=== PATIENT | female | born 1990 | race Two or more races ===

== ENCOUNTER 2021-11-18 10:43 | Outpatient (REF) | payer SELFPAY ==
[2021-11-18 14:13] LABS: Binax Internal Control QC Valid; Binax Lot number: 9864; Binax Now Covid-19 Ag Negative (Negative)
== END 2021-11-18 10:44 | disposition home or self-care (01) ==
LOC: HO.LAB 10:43
PROVIDERS: Visit Provider Internal Medicine
DX: Z20.822 Contact with and (suspected) exposure to COVID-19 (principal)
CPT/HCPCS: 36415; C9803

== ENCOUNTER 2021-11-29 13:54 | Inpatient (IN) | payer MEDICAID, SELFPAY ==
--- NOTE | ~2021-11-29 | US_ITS ---
EXAMINATION: US ABDOMEN LIMITED CLINICAL INFORMATION: Elevated liver function tests. COMPARISON: None TECHNIQUE: Real-time imaging of the right upper quadrant abdominal viscera. FINDINGS: PANCREAS: Visualized portion of the head and body of the pancreas are unremarkable, remainder of the pancreas is obscured from visualization by overlying bowel gas. LIVER: The liver is normal in size. The liver contour is normal. Parenchymal echogenicity is normal. A 0.9 x 0.7 x 1.1 cm hyperechoic avascular lesion is noted in the liver adjacent to the gallbladder, which statistically represents a hemangioma. There is no intrahepatic biliary duct dilatation seen. GALLBLADDER: Normal. The gallbladder is physiologically distended without evidence of stones, sludge, polyps, wall thickening or pericholecystic fluid. COMMON BILE DUCT: Normal in caliber measuring 0.4 cm in diameter. RIGHT KIDNEY: Normal. No hydronephrosis. No renal calculi or focal parenchymal lesions. The kidney measures 10.6 cm in maximum dimension. FREE FLUID: Trace fluid is noted in the Morison's pouch. US/US abdomen limited IMPRESSION: 1. No sonographic evidence of hepatic steatosis. No biliary ductal dilatation. 2. Incomplete evaluation of the pancreas. 3. No evidence of cholelithiasis or acute cholecystitis. 4. A 1.1 cm hyperechoic lesion noted adjacent to the gallbladder in the right hepatic lobe. Statistically, the lesion represents a hemangioma. If clinically deemed necessary, correlation with dynamic liver MRI would be helpful for further evaluation. 5. Trace free fluid in the Morison's pouch. This is a nonspecific finding.
--- NOTE | ~2021-11-29 | US_ITS ---
EXAMINATION: US appendix CLINICAL INFORMATION: Reason for Exam RLQ pain COMPARISON: None. TECHNIQUE: Dynamic, real-time grayscale and color Doppler sonographic evaluation of the right lower quadrant was performed FINDINGS: A hollow viscus is shown on the images submitted for review, however it has a appearance of small bowel, undulating in contour. For this degree of dilatation, a pathologic appendix would be expected to show a smooth contour, and more rigid appearance. No inflammatory changes. US/US appendix IMPRESSION: Appendix not definitively identified therefore appendicitis is not excluded.
--- NOTE | ~2021-11-29 | US_ITS ---
EXAMINATION: US PELVIS CLINICAL INFORMATION: Right lower quadrant pain. Last menstrual period 10/29/2021 COMPARISON: None TECHNIQUE: Ultrasound of the pelvis is performed using both transabdominal and transvaginal transducers along with Doppler. Transvaginal imaging is performed due to inadequate visualization transabdominally. FINDINGS: Possible intrauterine gestational sac is identified with mean sac diameter of 2.5 mm which would correspond to a gestational age of 4 weeks, 5 days. No pole or yolk sac is identified. Ovaries are normal in size and appearance measuring 4.0 x 2.7 x 2.2 cm on the right and 2.2 x 1.7 x 1.8 cm and the left. There is a 1.8 cm corpus luteum within the right ovary. Small free fluid within the cul-de-sac. US/US pelvic and transvaginal IMPRESSION: * Possible intrauterine gestational sac with size corresponding to gestational age of 4 weeks, 5 days. Neither a pole nor yolk sac would necessarily be expected to be seen in this early in . * Normal ovaries.
[2021-11-29 14:12] VITALS: BP 110/72; PULSE 122; RESP 18; TEMP 36.8; O2SAT 100; BMI 19.6
[2021-11-29] MEDS: Ondansetron ODT 4 MG TAB.RAPDIS TRANSLINGU (14:21)
[2021-11-29 14:25] LABS: MANUAL DIFF FLAG NO
[2021-11-29 14:26] LABS: Basophils Percent Auto 0.2 % (0-2); Hematocrit 38.7 % (37.0-47.0); Hemoglobin 12.7 g/dl (12.0-16.0); Imm Gran Abs Auto 0.05 X10*3/uL (0.00-0.03); Imm Gran Pct Auto 0.4 % (0.0-0.4); Lymphocytes Absolute Auto 0.4 X10*3/uL (1.2-4.9); Lymphocytes Percent Auto 2.8 % (20-40); Mean Corpuscular HGB Conc 32.8 g/dl (31.0-35.0); Mean Corpuscular Hemoglobin 27.4 pg (27.0-33.0); Mean Corpuscular Volume 83.6 fL (80.0-98.0); Mean Platelet Volume 10.8 fL (9.4-12.3); Monocytes Absolute Auto 1.1 X10*3/uL (0.1-1.2); Monocytes Percent Auto 9.1 % (2-11); Neutrophils Absolute Auto 10.8 x10*3/uL (2.0-8.3); Neutrophils Percent Auto 87.5 % (45-73); Platelet Count 168 X10*3/uL (160-400); Red Blood Count 4.63 X10*6/uL (4.20-5.50); Red Cell Distribution Width 12.9 % (11.0-16.0); White Blood Count 12.4 X10*3/uL (4.8-10.8)
[2021-11-29 14:59] LABS: Alanine Aminotransferase 302 U/L (0-31); Albumin Level 4.2 g/dL (3.5-5.0); Alkaline Phosphatase 83 U/L (39-117); Anion Gap 14 (12-20); Aspartate Amino Transferase 280 U/L (5-31); Bilirubin Total 1.5 mg/dL (0.0-1.0); Blood Urea Nitrogen 9 mg/dL (9-16); Calcium 9.1 mg/dL (8.4-10.2); Carbon Dioxide 22 mmol/L (22-29); Chloride 105 mmol/L (96-108); Creatinine Clr Calc Pharmacy 87.5; Estimated Glomerular Filt Rate > 60; Glucose Random 118 mg/dL (60-115); Potassium 3.8 mmol/L (3.3-5.1); Sodium 137 mmol/L (135-145); Total Protein 7.6 g/dL (6.5-8.0)
[2021-11-29 20:14] LABS: Bilirubin Direct 0.8 mg/dL (0.0-0.5); Lipase 14 U/L (8-78)
[2021-11-29 21:57] VITALS: BP 120/77; PULSE 145; RESP 18; TEMP 37.7; O2SAT 100
[2021-11-29] MEDS: 0.9 % Sodium Chloride 1,000 ML 999 ML IV ×2 (22:14→23:29)
--- NOTE | 2021-11-29 22:16 | PC.NURSE ---
iv inserted, lab drawn, ivf running per order, pt sinus tach on monitor with pvcs at times, vss, will continue to monitor
--- NOTE | 2021-11-29 22:42 | ED.ABDPAIN ---
HPI - Abdominal Pain General Chief Complaint: Abdominal Pain Stated Complaint: lower r side pain vomiting Time Seen by Provider: 11/29/21 22:04 Source: patient Limitations: language barrier (Hospital conference services director used) History of Present Illness HPI narrative: This is a 31-year-old female who complains of abdominal pain with associated pain in her right lower back that began yesterday. Patient yesterday noted a urine seemed more concentrated and again noted that today. The patient has had nausea and vomiting earlier today. She had a little bit of diarrhea. She denies any dysuria per se. She denies any vaginal discharge or new sexual partners. She states she could be as she is not using protection, her last menstrual period was last month. She does have a history of Caesarean section, denies other surgery. Pain is worse with walking and movement, is worse in her right lower abdomen. Related Data Allergies Allergy/AdvReac Type Severity Reaction Status Date / Time No Known Allergies Allergy Verified 11/29/21 14:11 Review of Systems Review of Systems Yes all other systems are reviewed and are negative Constitutional: Reports as per HPI and Reports fever(s) Eyes: Reports as per HPI and Reports no additional eye complaints Reports system reviewed and no additional complaints, except as documented, Reports as per HPI, Denies nasal congestion, Denies nasal discharge and Denies sore throat Cardiovascular: Reports as per HPI, Denies chest pain and Denies dyspnea Respiratory: Reports as per HPI, Denies cough and Denies dyspnea Gastrointestinal: Reports as per HPI, Reports abdominal pain, Denies diarrhea, Reports nausea and Reports vomiting Genitourinary: Reports as per HPI, Denies hematuria and Reports dysuria Musculoskeletal: Reports no additional musculoskeletal complaints, Reports back pain and Denies numbness Skin/Breast: Reports as per HPI and Denies rash Reports as per HPI, Denies focal weakness, Denies numbness and Denies Sensory deficit (Neuro) Psychiatric: Reports no additional psychiatric complaints and Reports as per HPI Endocrine: Reports no additional endocrine complaints and Reports as per HPI Hematologic/Lymphatic: Reports no additional hematologic/lymphatic complaints, Reports as per HPI and Reports other (No peripheral edema) Physical Exam Vital Signs: Vital Signs: Last Vital Signs Temp 99.8 F 11/30/21 01:56 Pulse 123 H 11/30/21 01:56 Resp 18 11/30/21 01:56 BP 107/71 11/30/21 01:56 Pulse Ox 100 11/30/21 01:56 BMI result Body Mass Index 19.6 Const: General: cooperative, no acute distress and alert Orientation/consciousness: patient oriented x3 HENMT: Head: Yes normal to inspection Eyes: General: appearance normal, both eyes and all related structures Eyelids: Yes eyelids normal Conjunctivae: conjunctivae normal Pupils: Equal, round and reactive pupils present Neck: Neck: Yes normal visual inspection and Yes supple Chest: Chest palpation & inspection: normal inspection of the chest Resp: Effort & Inspection: normal respiratory effort Auscultation: clear to auscultation bilaterally Cardio: Rate: tachycardic Rhythm: regular rhythm Heart sounds: S1 normal heart sound present, S2 normal heart sound present, no gallops, no murmurs and no rubs GI: Palpation (GI): Soft to palpation, Tenderness to palpation present (GI) (Tender bilateral lower quadrants, right greater than left. Right CVAT) and Other GI palpation findings present (Non-distended) Auscultation: Hypoactive bowel sounds present Skin: General skin exam: no rashes or lesions noted Neuro: General: patient oriented x3, no focal motor deficits and CN's II-XI intact bilaterally Cranial nerves: Yes Equal, round and reactive pupils present Cognition (Neuro): normal cognition Motor exam (neuro): 5/5 motor strength present throughout Sensory Exam: No Sensory deficit (Neuro) Extrem: General: Yes normal to inspection and Yes no pedal edema Psych: Appearance: grossly normal Affect: normal affect MDM - Abdominal Pain MDM Narrative Medical decision making narrative: Patient with right flank pain, right CVA tenderness, some right lower quadrant pain and tenderness, was febrile and tachycardic to the 140s. Urinalysis showed evidence of UTI, overall picture consistent with pyelonephritis. Patient is with a beta hCG quant in the 300s, given this, ultrasound is being done to rule out ectopic and evaluate for appendicitis, though clinically I suspect pyelonephritis. Patient has received Zosyn IV as well as 2 L normal saline, Tylenol p.o.. Lactate was elevated 2.8. Findings consistent with sepsis. Patient is being signed out to Dr. Jewell at 02:15, ultrasound pending. Lab Data Result diagrams: 11/29/21 14:20 11/29/21 14:20 Labs: Lab Results 11/29/21 11/29/21 11/29/21 Range/Units 14:20 14:20 22:15 WBC 12.4 H (4.8-10.8) X10*3/uL RBC 4.63 (4.20-5.50) X10*6/uL Hgb 12.7 (12.0-16.0) g/dl Hct 38.7 (37.0-47.0) % MCV 83.6 (80.0-98.0) fL MCH 27.4 (27.0-33.0) pg MCHC 32.8 (31.0-35.0) g/dl RDW 12.9 (11.0-16.0) % Plt Count 168 (160-400) X10*3/uL MPV 10.8 (9.4-12.3) fL Immature Gran % (Auto) 0.4 (0.0-0.4) % Neut % (Auto) 87.5 H (45-73) % Lymph % (Auto) 2.8 L (20-40) % [place] % (Auto) 9.1 (2-11) % Eos % (Auto) 0.0 (0-4) % Baso % (Auto) 0.2 (0-2) % Lymph # (Auto) 0.4 L (1.2-4.9) X10*3/uL [place] # (Auto) 1.1 (0.1-1.2) X10*3/uL Eos # (Auto) 0.0 (0.0-0.4) X10*3/uL Baso # (Auto) 0.0 (0.0-0.2) X10*3/uL Abs Immat Gran (auto) 0.05 H (0.00-0.03) X10*3/uL Absolute Neuts (auto) 10.8 H (2.0-8.3) x10*3/uL Absolute Nucleated RBC 0.000 (0.0-0.012) X10*3/uL Nucleated RBC % (auto) 0.0 (0.0-0.2) /100WBC Sodium 137 (135-145) mmol/L Potassium 3.8 (3.3-5.1) mmol/L Chloride 105 (96-108) mmol/L Carbon Dioxide 22 (22-29) mmol/L Anion Gap 14 (12-20) BUN 9 (9-16) mg/dL Creatinine 0.70 (0.5-1.4) mg/dL Estim Creat Clear Calc 87.5 Estimated GFR > 60 Random Glucose 118 H (60-115) mg/dL Lactic Acid 2.8 H* (0.5-2.0) mmol/L Lactic Acid F/U @ 2Hr (0.5-2.0) mmol/L Calcium 9.1 (8.4-10.2) mg/dL Total Bilirubin 1.5 H (0.0-1.0) mg/dL Direct Bilirubin 0.8 H (0.0-0.5) mg/dL AST 280 H (5-31) U/L ALT 302 H (0-31) U/L Alkaline Phosphatase 83 (39-117) U/L Total Protein 7.6 (6.5-8.0) g/dL Albumin 4.2 (3.5-5.0) g/dL Lipase 14 (8-78) U/L Beta HCG, Quant mIU/mL Urine Color Urine Appearance Urine pH (5.0-8.0) Ur Specific [place] (1.005-1.025) Urine Protein (NEG-TRACE) MG/DL Urine Glucose (UA) (NEG) MG/DL Urine Ketones (NEG) MG/DL Urine Blood (NEG) Urine Nitrite (NEG) Ur Leukocyte Esterase (NEG) Urine RBC (0) /HPF Urine WBC (0-4) /HPF Ur Squamous Epith Cells /LPF Ur Renal Epithelial Cell /LPF Urine Bacteria /LPF Urine Mucus /LPF Urine Test (NEGATIVE) COVID-19 (FARRUKH) (Negative) COVID-19 Clin Com 11/29/21 11/29/21 11/29/21 Range/Units 22:20 23:20 23:20 WBC (4.8-10.8) X10*3/uL RBC (4.20-5.50) X10*6/uL Hgb (12.0-16.0) g/dl Hct (37.0-47.0) % MCV (80.0-98.0) fL MCH (27.0-33.0) pg MCHC (31.0-35.0) g/dl RDW (11.0-16.0) % Plt Count (160-400) X10*3/uL MPV (9.4-12.3) fL Immature Gran % (Auto) (0.0-0.4) % Neut % (Auto) (45-73) % Lymph % (Auto) (20-40) % [place] % (Auto) (2-11) % Eos % (Auto) (0-4) % Baso % (Auto) (0-2) % Lymph # (Auto) (1.2-4.9) X10*3/uL [place] # (Auto) (0.1-1.2) X10*3/uL Eos # (Auto) (0.0-0.4) X10*3/uL Baso # (Auto) (0.0-0.2) X10*3/uL Abs Immat Gran (auto) (0.00-0.03) X10*3/uL Absolute Neuts (auto) (2.0-8.3) x10*3/uL Absolute Nucleated RBC (0.0-0.012) X10*3/uL Nucleated RBC % (auto) (0.0-0.2) /100WBC Sodium (135-145) mmol/L Potassium (3.3-5.1) mmol/L Chloride (96-108) mmol/L Carbon Dioxide (22-29) mmol/L Anion Gap (12-20) BUN (9-16) mg/dL Creatinine (0.5-1.4) mg/dL Estim Creat Clear Calc Estimated GFR Random Glucose (60-115) mg/dL Lactic Acid (0.5-2.0) mmol/L Lactic Acid F/U @ 2Hr (0.5-2.0) mmol/L Calcium (8.4-10.2) mg/dL Total Bilirubin (0.0-1.0) mg/dL Direct Bilirubin (0.0-0.5) mg/dL AST (5-31) U/L ALT (0-31) U/L Alkaline Phosphatase (39-117) U/L Total Protein (6.5-8.0) g/dL Albumin (3.5-5.0) g/dL Lipase (8-78) U/L Beta HCG, Quant 308 mIU/mL Urine Color YELLOW Urine Appearance HAZY Urine pH 6.0 (5.0-8.0) Ur Specific [place] 1.025 (1.005-1.025) Urine Protein 1+ H (NEG-TRACE) MG/DL Urine Glucose (UA) NEG (NEG) MG/DL Urine Ketones 5 (NEG) MG/DL Urine Blood 3+ H (NEG) Urine Nitrite POS H (NEG) Ur Leukocyte Esterase 1+ H (NEG) Urine RBC 0-2 (0) /HPF Urine WBC 50-75 H (0-4) /HPF Ur Squamous Epith Cells 1+ /LPF Ur Renal Epithelial Cell TRACE /LPF Urine Bacteria 4+ /LPF Urine Mucus TRACE /LPF Urine Test (NEGATIVE) COVID-19 (FARRUKH) Negative (Negative) COVID-19 Clin Com See Note 11/29/21 11/30/21 Range/Units 23:25 01:38 WBC (4.8-10.8) X10*3/uL RBC (4.20-5.50) X10*6/uL Hgb (12.0-16.0) g/dl Hct (37.0-47.0) % MCV (80.0-98.0) fL MCH (27.0-33.0) pg MCHC (31.0-35.0) g/dl RDW (11.0-16.0) % Plt Count (160-400) X10*3/uL MPV (9.4-12.3) fL Immature Gran % (Auto) (0.0-0.4) % Neut % (Auto) (45-73) % Lymph % (Auto) (20-40) % [place] % (Auto) (2-11) % Eos % (Auto) (0-4) % Baso % (Auto) (0-2) % Lymph # (Auto) (1.2-4.9) X10*3/uL [place] # (Auto) (0.1-1.2) X10*3/uL Eos # (Auto) (0.0-0.4) X10*3/uL Baso # (Auto) (0.0-0.2) X10*3/uL Abs Immat Gran (auto) (0.00-0.03) X10*3/uL Absolute Neuts (auto) (2.0-8.3) x10*3/uL Absolute Nucleated RBC (0.0-0.012) X10*3/uL Nucleated RBC % (auto) (0.0-0.2) /100WBC Sodium (135-145) mmol/L Potassium (3.3-5.1) mmol/L Chloride (96-108) mmol/L Carbon Dioxide (22-29) mmol/L Anion Gap (12-20) BUN (9-16) mg/dL Creatinine (0.5-1.4) mg/dL Estim Creat Clear Calc Estimated GFR Random Glucose (60-115) mg/dL Lactic Acid (0.5-2.0) mmol/L Lactic Acid F/U @ 2Hr 1.5 (0.5-2.0) mmol/L Calcium (8.4-10.2) mg/dL Total Bilirubin (0.0-1.0) mg/dL Direct Bilirubin (0.0-0.5) mg/dL AST (5-31) U/L ALT (0-31) U/L Alkaline Phosphatase (39-117) U/L Total Protein (6.5-8.0) g/dL Albumin (3.5-5.0) g/dL Lipase (8-78) U/L Beta HCG, Quant mIU/mL Urine Color Urine Appearance Urine pH (5.0-8.0) Ur Specific [place] (1.005-1.025) Urine Protein (NEG-TRACE) MG/DL Urine Glucose (UA) (NEG) MG/DL Urine Ketones (NEG) MG/DL Urine Blood (NEG) Urine Nitrite (NEG) Ur Leukocyte Esterase (NEG) Urine RBC (0) /HPF Urine WBC (0-4) /HPF Ur Squamous Epith Cells /LPF Ur Renal Epithelial Cell /LPF Urine Bacteria /LPF Urine Mucus /LPF Urine Test POSITIVE H (NEGATIVE) COVID-19 (FARRUKH) (Negative) COVID-19 Clin Com Discharge Plan Discharge Clinical Impression: Pyelonephritis, First trimester [facility] Past Medical History Medical History (Updated 11/30/21 @ 02:18 by Chet Iverson MD) Asthma Surgical History (Updated 11/29/21 @ 14:14 by Meenu Siddiqi RN) H/O mitral valve replacement Social History Social History Advance Directives: No Advance Directives Information Provided: No Patient : No
[2021-11-29 22:45] LABS: COVID-19 Test Negative (Negative)
[2021-11-29 22:50] LABS: Lactic Acid 2.8 mmol/L (0.5-2.0)
[2021-11-29 23:23] VITALS: BP 111/75; PULSE 129; RESP 15; TEMP 38.4; O2SAT 100
[2021-11-29] MEDS: Acetaminophen 325 MG TABLET 650 MG PO (23:26)
[2021-11-29] MEDS: ondansetron HCL 4 MG/2 ML VIAL IVPUSH (23:27)
[2021-11-29] MEDS: HYDROmorphone HCl 1 MG/ML SYRINGE IVPUSH (23:29)
[2021-11-29] MEDS: Piperacillin Sodium/Tazobactam 3.375 GM in 0.9 % Sodium Chloride 50 ML IV (23:31)
[2021-11-29 23:39] LABS: Appearance Urine HAZY; Color Urine YELLOW; Glucose Urine UA NEG (NEG); Leukocyte Esterase Urine 1+ (NEG); Nitrite Urine POS (NEG); Specific Gravity - Urine 1.025 (1.005-1.025); UACC Culture Trigger YES; Urine Blood 3+ (NEG); Urine Ketones 5 MG/DL (NEG); Urine Protein 1+ MG/DL (NEG-TRACE)
[2021-11-29 23:42] LABS: UPreg QC Valid YES; Urine Pregnancy POSITIVE (NEGATIVE)
[2021-11-29 23:47] LABS: HCG Quantitative 308 mIU/mL
[2021-11-30] VITALS (7 sets, daily range): BP systolic 95–116; BP diastolic 51–83; PULSE 98–131; RESP 14–20; TEMP 37.1–37.8; O2SAT 97–100
[2021-11-30 00:06] LABS: Bacteria Urine 4+ /LPF; Mucus Urine TRACE /LPF; RBC Urine 0-2 /HPF (0); Renal Epithelial Cells Urine TRACE /LPF; Squamous Epithelial Cell Urine 1+ /LPF; WBC Urine 50-75 /HPF (0-4)
[2021-11-30 00:19] LABS: Reflex Lactate? Lactic Acid Added
[2021-11-30 01:55] LABS: ~Lactic Acid-LAB USE ONLY 1.5 mmol/L (0.5-2.0)
--- NOTE | 2021-11-30 02:49 | PC.NURSE ---
BEBETO KEBEDE IS AWARE OF PATIENT TEMP .
--- NOTE | 2021-11-30 10:18 | PHA.MEDREC ---
Pharmacy Consult ? Medication Reconciliation Pharmacy has completed the medication reconciliation.
[2021-11-30] MEDS: Morphine Sulfate 2 MG/ML CARTRIDGE IVPUSH (10:22)
[2021-11-30] MEDS: Acetaminophen 325 MG TABLET 650 MG PO ×2 (10:27→18:03)
--- NOTE | 2021-11-30 10:44 | PM.IMHP ---
History of Present Illness Date of Service: 11/30/21 Attending physician on admission: Dwain Long Chief Complaint: UTI /sepsis/pyelonephritis, elevated LFT, . 31-year-old female 2 para 0, history of preeclampsia during last , came to the hospital because of dysuria, foul-smelling urine and right side flank pain, also has nausea and vomiting. abdominal ultrasound was done she seems to be possible intrauterine -4 weeks 5 days possible duration.No pole or yolk sac is identified. Patient has white count of 12.4, initial fever of 101.2 overnight Lactic acidosis 2.8, also tachycardic patient also has elevated LFT. Denies any new complaint of chest pain or shortness of breath Or vaginal discharge Denies any cough Denies any weakness or numbness. Past medical history: Asthma,mitral valve dysfunction- she says she did not had any surgery on the Mitral valve but she follows up outpatient with Cardiology yearly for that. social history: Patient lives with partner, denies any alcohol use or recreational drug use or smoking personal history: She says she is sexually active with only 1 partner and the she denies any history of any STD. Review of Systems Review of Systems: as above. Yes all other systems are reviewed and are negative [facility] Medical History Asthma Pertinent family history: She denies any family history of asthma. Surgical History H/O mitral valve replacement Social History Smoked in Last 30 Days: No Use of substances other than those prescribed or required for medical reasons: No Advance Directives: No Advance Directives Information Provided: No Patient : No service: No Current occupational status: employed Meds Allergies Allergy/AdvReac Type Severity Reaction Status Date / Time No Known Allergies Allergy Verified 11/29/21 14:11 Active Medications: Current Medications Albuterol Sulfate (Albuterol Sulfate 90 Mcg 8 Gm Inhaler) 2 puff INHALE RQ6H PRN PRN Reason: sob Multivitamins/Vitamin C (Multivitamin Tablet) 1 tab PO DAILY [facility] Pharmacy Consult (Consult Rx Perform Med Rec) 1 each MISCELLANE ONCE PRN PRN Reason: Consult order Sodium Chloride (0.9 % Sodium Chloride Flush 3 Ml Syringe) 3 ml IVFLUSH QSHIFT HOLLY Home Medications Medication Instructions Recorded Confirmed Last Taken Type No Known Home Meds 11/30/21 11/30/21 Unknown History Physical Exam Vital Signs and Narrative: Vital Signs: Last Vital Signs Temp 99.9 F 11/30/21 10:20 Pulse 112 H 11/30/21 10:20 Resp 14 11/30/21 10:20 BP 108/79 11/30/21 10:20 Pulse Ox 98 11/30/21 10:20 BMI result Body Mass Index 19.6 Physical exam: Appearance: Alert.? Oriented X3.? not in distress.? Eyes: Pupils equal, round and reactive to light.? Sclera nonicteric.? ENT: Pharynx normal.? Moist mucous membranes. cvs: rrr, [id number] res: clear to auscultation ,no rhonchii or wheezing abd: no rebound or guarding , Right flank pain and right-sided CVA tenderness present., bs present. ext pulses present , no cyanosis ,Gait well balanced well coordinated. neuro: axo3 , nonfocal. Results Labs CBC and Chem 7: 11/29/21 14:20 11/29/21 14:20 Labs: Laboratory Results - last 24 hr 11/29/21 11/29/21 11/29/21 14:20 14:20 22:15 MCV 83.6 MCH 27.4 MCHC 32.8 RDW 12.9 Plt Count 168 MPV 10.8 Immature Gran % (Auto) 0.4 Neut % (Auto) 87.5 H Lymph % (Auto) 2.8 L [place] % (Auto) 9.1 Eos % (Auto) 0.0 Baso % (Auto) 0.2 Lymph # (Auto) 0.4 L [place] # (Auto) 1.1 Eos # (Auto) 0.0 Baso # (Auto) 0.0 Abs Immat Gran (auto) 0.05 H Absolute Neuts (auto) 10.8 H Absolute Nucleated RBC 0.000 Nucleated RBC % (auto) 0.0 Anion Gap 14 Estim Creat Clear Calc 87.5 Estimated GFR > 60 Random Glucose 118 H Lactic Acid 2.8 H* Lactic Acid F/U @ 2Hr Calcium 9.1 Total Bilirubin 1.5 H Direct Bilirubin 0.8 H AST 280 H ALT 302 H Alkaline Phosphatase 83 Total Protein 7.6 Albumin 4.2 Lipase 14 Beta HCG, Quant Urine Color Urine Appearance Urine pH Ur Specific [place] Urine Protein Urine Glucose (UA) Urine Ketones Urine Blood Urine Nitrite Ur Leukocyte Esterase Urine RBC Urine WBC Ur Squamous Epith Cells Ur Renal Epithelial Cell Urine Bacteria Urine Mucus Urine Test COVID-19 (FARRUKH) COVID-19 Clin Com 11/29/21 11/29/21 11/29/21 22:20 23:20 23:20 MCV MCH MCHC RDW Plt Count MPV Immature Gran % (Auto) Neut % (Auto) Lymph % (Auto) [place] % (Auto) Eos % (Auto) Baso % (Auto) Lymph # (Auto) [place] # (Auto) Eos # (Auto) Baso # (Auto) Abs Immat Gran (auto) Absolute Neuts (auto) Absolute Nucleated RBC Nucleated RBC % (auto) Anion Gap Estim Creat Clear Calc Estimated GFR Random Glucose Lactic Acid Lactic Acid F/U @ 2Hr Calcium Total Bilirubin Direct Bilirubin AST ALT Alkaline Phosphatase Total Protein Albumin Lipase Beta HCG, Quant 308 Urine Color YELLOW Urine Appearance HAZY Urine pH 6.0 Ur Specific [place] 1.025 Urine Protein 1+ H Urine Glucose (UA) NEG Urine Ketones 5 Urine Blood 3+ H Urine Nitrite POS H Ur Leukocyte Esterase 1+ H Urine RBC 0-2 Urine WBC 50-75 H Ur Squamous Epith Cells 1+ Ur Renal Epithelial Cell TRACE Urine Bacteria 4+ Urine Mucus TRACE Urine Test COVID-19 (FARRUKH) Negative COVID-19 Clin Com See Note 11/29/21 11/30/21 23:25 01:38 MCV MCH MCHC RDW Plt Count MPV Immature Gran % (Auto) Neut % (Auto) Lymph % (Auto) [place] % (Auto) Eos % (Auto) Baso % (Auto) Lymph # (Auto) [place] # (Auto) Eos # (Auto) Baso # (Auto) Abs Immat Gran (auto) Absolute Neuts (auto) Absolute Nucleated RBC Nucleated RBC % (auto) Anion Gap Estim Creat Clear Calc Estimated GFR Random Glucose Lactic Acid Lactic Acid F/U @ 2Hr 1.5 Calcium Total Bilirubin Direct Bilirubin AST ALT Alkaline Phosphatase Total Protein Albumin Lipase Beta HCG, Quant Urine Color Urine Appearance Urine pH Ur Specific [place] Urine Protein Urine Glucose (UA) Urine Ketones Urine Blood Urine Nitrite Ur Leukocyte Esterase Urine RBC Urine WBC Ur Squamous Epith Cells Ur Renal Epithelial Cell Urine Bacteria Urine Mucus Urine Test POSITIVE H COVID-19 (FARRUKH) COVID-19 Clin Com Imaging Radiologist's Impressions: Impressions Appendix Ultrasound 11/29/21 00:56 IMPRESSION: Appendix not definitively identified therefore appendicitis is not excluded. Pelvic/Transvag US 11/29/21 01:21 IMPRESSION: * Possible intrauterine gestational sac with size corresponding to gestational age of 4 weeks, 5 days. Neither a pole nor yolk sac would necessarily be expected to be seen in this early in . * Normal ovaries. Assessment and Plan (1) Pyelonephritis: Status: Acute (2) First trimester : Status: Acute (3) Sepsis: Status: Acute 31-year-old female with history of asthma, mentor were dysfunction came to the hospital because of dysuria found to have UTI/pyelonephritis 1.sepsis (POA) secondary to UTI/pyelonephritis UA -pyuria fever is improving leukocytosis of 12.4 sepsis exam completed blood and urine culture pending lactic acidosis resolved will start patient on IV antibiotic ,gentle hydration, she received a dose of Zosyn overnight. 2. elevated LFT -unclear origin we will add abdominal ultrasound, hepatitis profile and repeat liver panel . 3. asthma: p.r.n. albuterol 4. possible : Added multi vitamins patient advised to get a PCP and will need a kettle cook also since now is she is possibly . 5. Mitral valve dysfunction: Denies any chest pain or shortness of breath or any new dizziness or palpitations continued follow-up outpatient with Cardiology DVT prophylaxis young female - advised to stay out of bed and mobilize. above management discussed with patient in detail and she understand and in agreement with the above plan, time spent 70 minute. Quality Stroke Does the patient have a stroke diagnosis?: No VTE Prior VTE?: No VTE Risk Level:: Medical - moderate - high VTE Device Contraindication: N/A - Device Ordered VTE Drug Contraindication: N/A - Med Ordered
[2021-11-30 11:53] LABS: Estimated Average Glucose 100 mg/dL; Hemoglobin A1c % 5.1 %
[2021-11-30] MEDS: cefTRIAXone sodium 1 GM in 0.9 % Sodium Chloride 50 ML IV (11:53)
[2021-11-30] MEDS: Lactated Ringers 1,000 ML 80 ML IVCONT (11:53)
[2021-11-30] MEDS: Multivitamin TABLET 1 TAB PO (11:54)
[2021-11-30 12:47] LABS: Total Protein 6.3 g/dL (6.5-8.0)
[2021-11-30 13:04] LABS: Alanine Aminotransferase 170 U/L (0-31); Albumin Level 3.5 g/dL (3.5-5.0); Alkaline Phosphatase 71 U/L (39-117); Aspartate Amino Transferase 75 U/L (5-31); Bilirubin Direct 0.3 mg/dL (0.0-0.5); Bilirubin Total 0.6 mg/dL (0.0-1.0)
--- NOTE | 2021-11-30 13:27 | MHC.CM.PN ---
PATIENT LIVES WITH HER FAMILY. NO DME OR VNA SERVICES AND NO PCP. SHE STATES THAT SHE VISITS [facility] FOR ANY MEDICAL NEEDS. SHE IS AWARE OF IMPORTANCE OF SECURING A PCP FOR HER HEALTHCARE NEEDS. PATIENT HAS NO HCP AND IS AWARE THAT CASE MANAGEMENT CAN ASSIST WITH COMPLETION IF SHE WOULD LIKE TO ASSIGN AN AGENT PRIOR TO HER ANTICIPATED FRIDAY 12/01 DISCHARGE HOME. PATIENT HAS A RIDE HOME.
[2021-12-01 00:22] VITALS: BP 180/118; PULSE 101; RESP 14; O2SAT 95
[2021-12-01 00:26] VITALS: BP 104/65; PULSE 109; RESP 20; TEMP 37.5; O2SAT 98
[2021-12-01] MEDS: Lactated Ringers 1,000 ML 80 ML IVCONT ×2 (00:53→13:21)
[2021-12-01] MEDS: 0.9 % Sodium Chloride Flush 3 ML SYRINGE IVFLUSH (01:37)
[2021-12-01 05:10] LABS: HBS Num1 0.87 mIU/mL (0-7.99); HBsAGNum1 0.25 S/CO (0.00-0.99); Hepatitis B Core Antibody Nonreactive (Nonreactive); Hepatitis B Surface Antigen Negative (Negative); ~Hepatitis B Surface Antibody NONREACTIVE (Nonreactive)
[2021-12-01 05:46] LABS: ~HepC Num1 0.12 S/CO (0.00-0.79); ~Hepatitis C Antibody Nonreactive (Nonreactive)
[2021-12-01 07:06] VITALS: BP 106/65; PULSE 110; RESP 18; O2SAT 98
[2021-12-01 08:35] VITALS: TEMP 37.8
[2021-12-01] MEDS: Multivitamin TABLET 1 TAB PO (08:39)
[2021-12-01 09:18] LABS: Hematocrit 33.4 % (37.0-47.0); Hemoglobin 10.9 g/dl (12.0-16.0); Mean Corpuscular HGB Conc 32.6 g/dl (31.0-35.0); Mean Corpuscular Hemoglobin 27.2 pg (27.0-33.0); Mean Corpuscular Volume 83.3 fL (80.0-98.0); Mean Platelet Volume 10.5 fL (9.4-12.3); Platelet Count 159 X10*3/uL (160-400); Red Blood Count 4.01 X10*6/uL (4.20-5.50); White Blood Count 9.2 X10*3/uL (4.8-10.8)
[2021-12-01] MEDS: Acetaminophen 325 MG TABLET 650 MG PO ×2 (10:04→17:48)
[2021-12-01] MEDS: cefTRIAXone sodium 1 GM in 0.9 % Sodium Chloride 50 ML IV (13:18)
--- NOTE | 2021-12-01 16:29 | P.CNID_ITS ---
History of Present Illness Data of Consult Service Date: 12/01/21 Requesting physician: Dwain Long Primary Care Provider: None Physician HPI Reason for consult: sepsis,gram negative mela She presents with chills,right flank pain and dysuria for a day worsening The symptoms started two days ago She is four weeks Review of Systems Review of Systems: Yes all other systems are reviewed and are negative PMFSH Past Medical History Medical History Asthma Family History Family history: reviewed and not pertinent Surgical History Surgical History H/O mitral valve replacement Social History Social History Alcohol intake: current Alcohol intake frequency: does not drink Patient Tobacco Use Status: Never used Tobacco Smoked in Last 30 Days: No Use of substances other than those prescribed or required for medical reasons: No Advance Directives: No Advance Directives Information Provided: No Patient : No service: No Current occupational status: employed Meds Allergies Allergy/AdvReac Type Severity Reaction Status Date / Time No Known Allergies Allergy Verified 11/29/21 14:11 Active Medications: Current Medications Albuterol Sulfate (Albuterol Sulfate 90 Mcg 8 Gm Inhaler) 2 puff INHALE RQ6H PRN PRN Reason: sob Lactated Ringer's (Lr) 1,000 mls @ 80 mls/hr IVCONT .[id number] COUNT INCLUDES THE [facility] Last Admin: 12/01/21 13:21 Dose: 80 mls/hr Documented by: Ceftriaxone Sodium 1 gm/ (Sodium Chloride) 50 mls @ 100 mls/hr IV Q24H COUNT INCLUDES THE [facility] Last Infusion: 12/01/21 14:48 Dose: Infused Documented by: Multivitamins/Vitamin C (Multivitamin Tablet) 1 tab PO DAILY COUNT INCLUDES THE [facility] Last Admin: 12/01/21 08:39 Dose: 1 tab Documented by: Pharmacy Consult (Consult Rx Perform Med Rec) 1 each MISCELLANE ONCE PRN PRN Reason: Consult order Sodium Chloride (0.9 % Sodium Chloride Flush 3 Ml Syringe) 3 ml IVFLUSH QSHIFT COUNT INCLUDES THE [facility] Last Admin: 12/01/21 16:05 Dose: Not Given Documented by: Home Medications Medication Instructions Recorded Confirmed Last Taken Type No Known Home Meds 12/01/21 12/01/21 Unknown History Physical Exam Vital Signs: Vital Signs: Last Vital Signs Temp 100.1 F 12/01/21 08:35 Pulse 110 H 12/01/21 07:06 Resp 18 12/01/21 07:06 BP 106/65 12/01/21 07:06 Pulse Ox 98 12/01/21 07:06 BMI result Body Mass Index 19.6 Const: General: cooperative HENMT: Head: Yes normal to inspection Mouth: Normal oral and palatal mucosa present Resp: Effort & Inspection: normal respiratory effort Cardio: Rate: regular rate Rhythm: regular rhythm GI: Palpation (GI): Soft to palpation and Tenderness to palpation present (GI) (right flank discomfort) Results Labs CBC & Chem 7: 12/01/21 09:13 11/29/21 14:20 Labs: Short CBC 12/01/21 Range/Units 09:13 WBC 9.2 (4.8-10.8) X10*3/uL Hgb 10.9 L (12.0-16.0) g/dl Hct 33.4 L (37.0-47.0) % Plt Count 159 L (160-400) X10*3/uL Microbiology Microbiology Results: Microbiology 11/29/21 Unknown Urine clean catch - Urine fu top Urine Culture - Preliminary Gram negative mela 11/29/21 23:20 Blood - Venous Blood Culture - Preliminary No growth after 24 hours. 11/29/21 23:20 Blood - Venous Blood Culture - Preliminary No growth after 24 hours. Assessment and Plan (1) Sepsis: Status: Acute (2) Pyelonephritis: Status: Acute There is concern over resistant organism Continue Ceftriaxone Await cultures Probable Ceftin 500 mg bid for 14 days and Macrobid 100 HS suppression if sensitive remainder of
--- NOTE | 2021-12-01 16:50 | P.PNIM_ITS ---
Subjective Subjective Date of Service: 12/01/21 Interval History: uti/ Review of Systems still has dysuria and ovenrigth on/off fever still has flank pain. Physical Exam Vital Signs: Vital Signs: Last Vital Signs Temp 100.1 F 12/01/21 08:35 Pulse 110 H 12/01/21 07:06 Resp 18 12/01/21 07:06 BP 106/65 12/01/21 07:06 Pulse Ox 98 12/01/21 07:06 BMI result Body Mass Index 19.6 ?Alert.? Oriented X3.? not in distress.? Eyes: Pupils equal, round and reactive to light.? Sclera nonicteric.? ENT: Pharynx normal.? Moist mucous membranes. cvs: rrr, [id number] res: clear to auscultation ,no rhonchii or wheezing abd: no rebound or guarding ,? Right flank pain and right-sided CVA tenderness present., bs present. ext pulses present , no cyanosis .. neuro: axo3 , nonfocal. Objective Data Active Medications Albuterol Sulfate (Albuterol Sulfate 90 Mcg 8 Gm Inhaler) 2 puff INHALE RQ6H PRN PRN Reason: sob Lactated Ringer's (Lr) 1,000 mls @ 80 mls/hr IVCONT .[id number] [facility] Last Admin: 12/01/21 13:21 Dose: 80 mls/hr Documented by: EDEN Ceftriaxone Sodium 1 gm/ (Sodium Chloride) 50 mls @ 100 mls/hr IV Q24H [facility] Last Infusion: 12/01/21 14:48 Dose: 0 mls/hr Documented by: EDEN Multivitamins/Vitamin C (Multivitamin Tablet) 1 tab PO DAILY [facility] Last Admin: 12/01/21 08:39 Dose: 1 tab Documented by: JUAN JOSE Pharmacy Consult (Consult Rx Perform Med Rec) 1 each MISCELLANE ONCE PRN PRN Reason: Consult order Sodium Chloride (0.9 % Sodium Chloride Flush 3 Ml Syringe) 3 ml IVFLUSH QSHIFT [facility] Last Admin: 12/01/21 16:05 Dose: Not Given Documented by: EDEN Non-Admin Reason: IV Running Labs CBC & Chem 7: 12/01/21 09:13 11/29/21 14:20 Labs: Laboratory Results - last 24 hr 11/30/21 12/01/21 11:28 09:13 MCV 83.3 MCH 27.2 MCHC 32.6 RDW 13.0 Plt Count 159 L MPV 10.5 Absolute Nucleated RBC 0.000 Nucleated RBC % (auto) 0.0 Hep Bs Antigen Negative Hep Bs Antibody NONREACTIVE Hep B Core Total Ab Nonreactive Hepatitis C Ab (EIA) Nonreactive Microbiology Microbiology Results: Microbiology 11/29/21 Unknown Urine Culture - Preliminary Urine clean catch - Urine fu top Gram negative mela 11/29/21 23:20 Blood Culture - Preliminary Blood - Venous No growth after 24 hours. 11/29/21 23:20 Blood Culture - Preliminary Blood - Venous No growth after 24 hours. Assessment and Plan (1) Sepsis: Status: Acute (2) Pyelonephritis: Status: Acute (3) First trimester : Status: Acute Assessment and Plan: 31-year-old female with history of asthma, mentor were dysfunction came to the hospital because of dysuria found to have UTI/pyelonephritis 1.sepsis (POA)? secondary to UTI/pyelonephritis UA -pyuria ?fever is improving ?leukocytosis re resolved ?blood cultures prelim @24 hrs neg and urine culture -grew gram neg rods ?lactic acidosis resolved ?will start patient on IV antibiotic ,gentle hydration d/w ID-need to wait for urine cultures since she is preganant and also does not have pcp. 2. elevated LFT -improving ?we will add abdominal ultrasoundseems fine -hepatic hemangioms , hepatitis profile -seems fine , hepatits A igm pending liver enzymes seems improving . 3. asthma: p.r.n.? albuterol 4. possible : ? Added multi vitamins ?patient advised to get a PCP and will need a shell core and molding supervisor also since now is she is possibly . ?5.? Mitral valve? dysfunction: ? Denies any chest pain or shortness of breath or any new dizziness or palpi tations ?continued follow-up outpatient with Cardiology ?DVT prophylaxis young female - advised to stay out of bed and mobilize. Quality Stroke Does the patient have a stroke diagnosis?: No VTE Prior VTE?: No VTE Risk Level:: Medical - moderate - high VTE Device Contraindication: N/A - Device Ordered VTE Drug Contraindication: N/A - Med Ordered
[2021-12-01 18:38] VITALS: BP 92/56; PULSE 115; RESP 18; TEMP 37.6; O2SAT 100
[2021-12-01 20:04] VITALS: TEMP 36.9
[2021-12-02] MEDS: Acetaminophen 325 MG TABLET 650 MG PO (01:47)
[2021-12-02] MEDS: Lactated Ringers 1,000 ML 80 ML IVCONT (01:49)
[2021-12-02 06:51] VITALS: BP 103/74; PULSE 78; RESP 14; O2SAT 99
--- NOTE | 2021-12-02 08:46 | PM.DS ---
DS: Providers Provider Date of Service: 12/02/21 Date of admission: 11/30/21 10:38 Primary care physician: None Physician Consults: 12/01/21 13:04 Consult to Infectious Diseases Routine Consulting Provider: Ratna Rehman Reason for consultation: sepsis /pyelonaephritis Has provider been notified: No DS: Diagnosis Discharge Diagnosis (1) Sepsis: Status: Acute (2) Pyelonephritis: Status: Acute (3) First trimester : Status: Acute DS: Summary Hospital Course Hospital Course: ?31-year-old female 2 para 0, history of preeclampsia during last , came to the hospital because of dysuria, foul-smelling urine and? right side flank pain, also has nausea? and vomiting. ?abdominal ultrasound was done she seems to be? possible intrauterine -4 weeks 5 days possible duration.No pole or yolk sac is identified. ? Patient has white count of 12.4, initial fever of 101.2 overnight Lactic acidosis 2.8, also tachycardic ?patient also has elevated LFT. hospital course: Patient admitted for sepsis secondary to pyelonephritis, also found to have mild elevated LFTs secondary to sepsis. Patient was started on IV antibiotics seems to be improving, blood culture negative, urine culture grew E coli pansensitive. patient seen by infectious disease recommended p.o. Ceftin 500 b.i.d. for acute treatment and subsequently patient needs to be on nitrofurantoin 100 mg at night for the duration of limited supply of nitrofurantoin as given for the supply needs to be arranged outpatient with industrial gas servicer helper. Patient was told in detail to follow-up with industrial gas servicer helper with Dr. Gonzalez since she has possible . liver function test is improving, hepatitis serologies for Hepatitis B and C nonreactive, hepatitis A IgG M antibody pending, abdominal ultrasound shows possibleliver hemangioma - follow-up with GI out patiently, monitor liver functions with GI. Denies any weakness or numbness. Above management discussed with the patient in detail length with the help of delphine sign language interpreter-she understand and in agreement with the above plan, time spent 50 minutes and 50% time spent on counseling. Significant findings: As above. Procedures performed: None. Treatment and response: As above. Complications: None. Time Spent with Patient Time attestation: Total time spent providing and/or coordinating discharge services: Discharge coordination time: Greater than 30 minutes Quality: Stroke Does the patient have a stroke diagnosis?: No Physical Exam Vital Signs: Vital Signs: Last Vital Signs Temp 98.5 F 12/01/21 20:04 Pulse 78 12/02/21 06:51 Resp 14 12/02/21 06:51 BP 103/74 12/02/21 06:51 Pulse Ox 99 12/02/21 06:51 BMI result Body Mass Index 19.6 Appearance: Alert.? Oriented X3.? not in distress.? Eyes: Pupils equal, round and reactive to light.? Sclera nonicteric.? ENT: Pharynx normal.? Moist mucous membranes. cvs: rrr, [id number] res: clear to auscultation ,no rhonchii or wheezing abd: no rebound or guarding ,? Right flank pain and right-sided CVA tenderness improved., bs present. ext pulses present , no cyanosis ,Gait well balanced well coordinated. neuro: axo3 , nonfocal. DS: Data Data Completed and Pending Labs on day of discharge: Laboratory Results - last 24 hr 12/01/21 09:13 WBC 9.2 RBC 4.01 L Hgb 10.9 L Hct 33.4 L MCV 83.3 MCH 27.2 MCHC 32.6 RDW 13.0 Plt Count 159 L MPV 10.5 Absolute Nucleated RBC 0.000 Nucleated RBC % (auto) 0.0 Preliminary micro results at discharge 11/29/21 23:20 Blood Culture - Preliminary Blood - Venous No growth after 48 hours. 11/29/21 23:20 Blood Culture - Preliminary Blood - Venous No growth after 48 hours. Additional Comments Additional comments: US/US abdomen limited IMPRESSION: 1. No sonographic evidence of hepatic steatosis. No biliary ductal dilatation. ? 2. Incomplete evaluation of the pancreas. ? 3. No evidence of cholelithiasis or acute cholecystitis. ? 4. A 1.1 cm hyperechoic lesion noted adjacent to the gallbladder in the right hepatic lobe. Statistically, the lesion represents a hemangioma. If clinically deemed necessary, correlation with dynamic liver MRI would be helpful for further evaluation. ? 5. Trace free fluid in the Morison's pouch. This is a nonspecific finding Discharge Plan Discharge Patient Disposition: Home, Self-Care Discharge Diagnosis: Sepsis, pyelonephritis, possible , mild elevated liver functions. Referrals: Cortez Wu MD [Physician] - 2 Weeks (follow up in 2 weeks ) PhysicianBreanne [Primary Care Provider] - 1 Week Denver Gonzalez MD [Physician] - 1 Week (follow up outpatiently) Discharge Medications: New Vitamin 27 mg iron- 800 mcg tablet 1 tab PO DAILY Qty: 30 RF: 0 cefuroxime axetil 500 mg tablet 500 mg PO Q12H Qty: 22 RF: 0 nitrofurantoin macrocrystal 100 mg capsule 100 mg PO BEDTIME Qty: 14 RF: 0 Discharge Orders: Discharge Order (Routine); Ordered 12/02/21 Ordered By: Dwain Long Diet: advance to usual diet Activity on Discharge: As tolerated Stand Alone Forms: Patient Portal Discharge page Other Ambulatory Orders: Liver Panel (Routine) Timeframe: 1 Week Facility: [facility] - Location: Laboratory Ordered By: Dwain Long Care Plan Goals: Patient admitted for sepsis secondary to pyelonephritis, also found to have mild elevated LFTs secondary to sepsis. Patient was started on IV antibiotics seems to be improving, blood culture negative, urine culture grew E coli pansensitive. patient seen by infectious disease recommended p.o. Ceftin 500 b.i.d. for acute treatment and subsequently patient needs to be on nitrofurantoin 100 mg at night for the duration of limited supply of nitrofurantoin as given for the supply needs to be arranged outpatient with industrial gas servicer helper. Patient was told in detail to follow-up with industrial gas servicer helper with Dr. Gonzalez since she has possible . liver function test is improving, hepatitis serologies for Hepatitis B and C nonreactive, hepatitis A IgG M antibody pending, abdominal ultrasound shows possibleliver hemangioma - follow-up with GI out patiently, monitor liver functions with GI. Health Concerns: as above. Plan of Treatment: as above. Assessment: as above.
[2021-12-02 09:07] VITALS: BP 115/66; PULSE 98; RESP 17; TEMP 37.1; O2SAT 99
--- NOTE | 2021-12-02 10:03 | MHC.CM.PN ---
PATIENT IS DISCHARGED HOME - SELF CARE FAMILY TO TRANSPORT.
[2021-12-02] MEDS: cefTRIAXone sodium 1 GM in 0.9 % Sodium Chloride 50 ML IV (10:13)
[2021-12-02] MEDS: Multivitamin TABLET 1 TAB PO (10:13)
[2021-12-03 04:39] LABS: Hepatitis A Antibody IgM 0.13 Index (0-0.79); ~Hepatitis A Antibody IgM Nonreactive (Nonreactive)
== END 2021-12-02 12:28 | disposition home or self-care (01) | DRG 566 ==
LOC: HO.ED 11-30 09:07 → HO.EDOVER 11-30 10:57 → HO.S3 12-02 06:34
PROVIDERS: Admitting Provider Internal Medicine; Emergency Provider Emergency Medicine; Visit Provider Internal Medicine
DX: O98.811 Other maternal infectious and parasitic diseases complicating pregnancy, first trimester (principal); A41.9 Sepsis, unspecified organism; O23.01 Infections of kidney in pregnancy, first trimester; O99.511 Diseases of the respiratory system complicating pregnancy, first trimester; J45.909 Unspecified asthma, uncomplicated; Z95.2 Presence of prosthetic heart valve; Z3A.01 Less than 8 weeks gestation of pregnancy; Z20.822 Contact with and (suspected) exposure to COVID-19; Z79.899 Other long term (current) drug therapy
CPT/HCPCS: 36415; 76705; 76830; 76856; 80053; 80076; 81001; 81025; 82248; 83036; 83605; 83690; 84702; 85025; 85027; 86704; 86706; 86709; 86803; 87040; 87086; 87088; 87186; 87340; 87635; 99285; J0696; J1170; J2270; J2405; J2543

== ENCOUNTER 2021-12-09 08:52 | Outpatient (REF) | payer MEDICAID, SELFPAY ==
[2021-12-09 10:21] LABS: Alanine Aminotransferase 40 U/L (0-31); Albumin Level 4.1 g/dL (3.5-5.0); Alkaline Phosphatase 80 U/L (39-117); Aspartate Amino Transferase 22 U/L (5-31); Bilirubin Direct 0.2 mg/dL (0.0-0.5); Bilirubin Total 0.3 mg/dL (0.0-1.0); Total Protein 7.6 g/dL (6.5-8.0)
== END 2021-12-09 08:53 | disposition home or self-care (01) ==
LOC: HO.LAB 08:52
PROVIDERS: Absent Provider Internal Medicine Gastroenterology; Visit Provider Internal Medicine
DX: A41.9 Sepsis, unspecified organism (principal); R79.89 Other specified abnormal findings of blood chemistry
CPT/HCPCS: 36415; 80076

== ENCOUNTER → 2021-12-10 14:01 | Outpatient (BNVA) | payer MEDICAID, SELFPAY | PROVIDERS: Visit Provider Advanced Practice Midwife | DX: Z34.91 Encounter for supervision of normal pregnancy, unspecified, first trimester (principal); N12 Tubulo-interstitial nephritis, not specified as acute or chronic; R79.89 Other specified abnormal findings of blood chemistry; N89.8 Other specified noninflammatory disorders of vagina; A41.9 Sepsis, unspecified organism | CPT/HCPCS: 81025; 99202 ==

== ENCOUNTER → 2022-04-02 15:45 | Outpatient (BNVA) | payer MEDICAID, SELFPAY | PROVIDERS: PCP Nurse Practitioner Family; Visit Provider Internal Medicine Cardiovascular Disease | DX: I34.1 Nonrheumatic mitral (valve) prolapse (principal) | CPT/HCPCS: 93005; 99202 ==

== ENCOUNTER 2025-02-23 10:08 | Outpatient (REF) | payer MEDICAID, SELFPAY ==
--- OUTSIDE RECORDS SUMMARY | 2025-02-23 10:52 | XMS_ITS | Encounter Summary ---
Author Organization [employer] Address [address] [facility] 7 [place] [address] Care Team Providers Care Vp Biology Name Role Phone [place] [facility] Primary Care Provider [phone] Reason for Visit * Reason Comments Annual Exam Encounter Details Date Type Department Care Team ([facility] st Contact Info) Description 02/23/2025 9:30 AM EDT Office Visit [facility] [address] [place], [place] [id number] [place] [facility] [address] [place] [address] Encounter for screening examination for sexually transmitted disease (Primary Dx); Flank pain; Mild intermittent asthma without complication Social History Tobacco Use Types Packs/Day Years Used Date Smoking Tobacco: Never Smokeless Tobacco: Never Tobacco Cessation:Counseling Given: Not Answered Alcohol Use Standard Drinks/Week Comments Never 0 (1 standard drink = 0.6 oz pur e alcohol) Housing Stability Answer Date Recorded What is your housing situation today? I have chanelle irving 02/23/[address] you li ve. Do you have problems with any of the following? None of the above 02/23/2025 Food Insecurity Answer Date Recorded Within the past 12 months, y ou worried that your food would run out before you got money to buy more: Never True 02/23/2025 Within the past 12 months,th e food you bought just didn't last and you didn't have enough money to get more: Never True 09/2025 Transportation Answer Date Recorded In the past 12 months, has l ack of transportation kept you from medical appts, meetings, work or from getting things needed for daily living? No 02/23/2025 Utilities Answer Date Recorded In the past 12 months, has t he electric, gas, oil or water company threatened to shut off services in your home? No 02/23/2025 Depression Answer Date Recorded Patient Health Questionnaire-2 Score 0 02/23/2025 Internet Access Answer Date Recorded Internet Access Q1 Yes 02/23/2025 Internet Access Q2 Not on file 02/23/2025 Comments No Sex and Gender Information Value Date Recorded Sex Assigned at Female 09/14/2022 10:39 AM EDT Legal Sex Female 10:39 AM EDT Gender Identity Female 09/14/2022 10:39 AM EDT Sexual Orientation Straight 09/14/2022 10 :39 AM EDT documented as of this encounter Last Filed Vital Signs Vital Sign Reading Time Taken Comments Blood Pressure 115/80 02/23/2025 9:40 AM EDT Pulse 78 02/23/2025 9:40 AM EDT Temperature 36.4 ??C (97.5 ??F) 02/23/2025 9:40 AM ED T Respiratory Rate 16 02/23/2025 9:40 AM EDT Oxygen Saturation 100% 02/23/2025 9:40 AM EDT Inhaled Oxygen Concentration - - Weight 49.7 kg (109 lb 9.6 oz) 02/23/2025 9:40 A M EDT Height 157.5 cm (5' 2 ) 02/23/2025 9:40 AM EDT Body Mass Index 20.05 02/23/2025 9:40 AM EDT documented in this encounter Plan of Treatment Scheduled Orders Name Type Priority Associated Diagnoses Orde r Schedule Syphilis Screen Lab Routine Encounter for screening examination for sexually transmitted disease Expected: 02/23/2025, Expires: 02/23/2026 HIV-1/2 Antigen and Antibodies, Fourth Generation, with Reflexes Lab Routine Encounter for screening examination for sexually transmitted disease Expected: 02/23/2025 (Approximate), Expires: 02/23/2026 Hepatitis C Antibody with Reflex to HCV, RNA, Quantitative, Real-Time PCR Lab Routine Encounter for screening examination for sexually transmitted disease Expected: 02/23/2025, Expires: 02/23/2026 Hepatitis B surface antigen, EIA Lab Routine Encounter for screening examination for sexually transmitted disease Expected: 02/23/2025 (Approximate), Expires: 02/23/2026 Hepatitis B Surface Antibody, Qualitative Lab Routine Encounter for screening examination for sexually transmitted disease Expected: 02/23/2025 (Approximate), Expires: 02/23/2026 Chlamydia/N. Gonorrhoeae RNA, TMA, Urogenitial Microbiology Routine Encounter for screening examination for sexually transmitted disease Expected: 02/23/2025 (Approximate), Expires: 02/23/2026 Urinalysis, Complete, with Reflex to Culture Lab Routine Flank pain Expected: 02/23/2025 (Approximate), Expires: 02/23/2026 Albumin, Random Urine W/Creatinine Lab Routine Flank pain Expected: 02/23/2025 (Approximate), Expires: 02/23/2026 Basic Metabolic Panel Lab Routine Flank pain Expected: 02/23/2025 (Approximate), Expires: 02/23/2026 Hepatic Function Panel Lab Routine Flank pain Expected: 02/23/2025 (Approximate), Expires: 02/23/2026 documented as of this encounter Visit Diagnoses Diagnosis Encounter for screening examination for sexually transmitted disease- Primary Flank pain Abdominal pain, unspecified site Mild intermittent asthma without complication documented in this encounter Care Teams Vp Biology Relationship Specialty Start Date End Date Malini Sterling FNP [address] [place] [id number] PCP - General Family Medicine 07/12/22 documented as of this encounter
--- OUTSIDE RECORDS SUMMARY | 2025-02-23 10:52 | XMS_ITS | Clinical Summary ---
Author Organization [employer] Address [address] [place] [address] 7 [place] [address] Care Team Providers Care Black Top Raker Name Role Phone Malini Sterling [employer] Primary Care Provider [phone] Allergies No known active allergies Medications propranolol (Inderal) 10 MG tabletIndicatio ns:Mitral valve prolapse,Migrai ne without aura and without status migrainosus, not intractable TAKE 1 TABLET BY MOUTH THREE TIMES DAILY 270 tablet 3 01/30/20 23 Active fluticasone (Flonase) 50 MCG/ACT nasal sprayIndication s:Otitis media with effusion, left Administer 1-2 sprays into each nostril in the morning. Shake gently. Before first use, prime pump. After use, clean tip and replace cap. 48 g 01/30/20 23 Active albuterol (Ventolin HFA) 108 (90 Base) MCG/ACT inhalerIndicati ons:Mild intermittent asthma without complication INHALE 2 PUFFS BY MOUTH EVERY 4 HOURS 18 g 3 02/24/20 25 Active albuterol (Ventolin HFA) 108 (90 Base) MCG/ACT inhalerIndicati ons:Mild intermittent asthma without complication INHALE 2 PUFFS BY MOUTH EVERY 4 HOURS 18 g 3 01/30/20 23 025 Discontinued(R eorder (will not trigger notification to Pharmacy)) Active Problems Problem Noted Date Diagnosed Date Mitral valve prolapse 01/28/2023 Hemangioma of liver 01/28/2023 Mild intermittent asthma 12/09/2021 Encounters Date Type Department Care Team Description 02/23/2025 9:30 AM EDT Office Visit [facility] [address] [place] [id number] GuayamaMalini FNP Encounter for screening examination for sexually transmitted disease (Primary Dx); Flank pain; Mild intermittent asthma without complication 02/23/2025 Travel 02/22/[address] [facility] [address] [facility] [place] [address] GuayamaMalini FNP chart prep 02/16/2025 Patient Outreach [facility] [address] [place] [address] GuayamaMalini FNP Pre-visit Planning (SDOH unable to reach, number disconnected) 02/07/2025 Population Health Risk Score [facility] () Department [address] [place] [id number] Provider, Population Health Generic from Last 3 Months Social History Tobacco Use Types Packs/Day Years Used Date Smoking Tobacco: Never Smokeless Tobacco: Never Tobacco Cessation:Counseling Given: Not Answered Alcohol Use Standard Drinks/Week Comments Never 0 (1 standard drink = 0.6 oz pur e alcohol) Housing Stability Answer Date Recorded What is your housing situation today? I have chanelleconrado irving 02/23/[address] you [...] Orientation Straight 09/14/2022 10 :39 AM EDT Last Filed Vital Signs Vital Sign Reading [...] Mass Index 20.05 02/23/2025 9:40 AM EDT Plan of Treatment Health Maintenance Due Date Last Done Comments HIV Screening 1991 Family Planning (PISQ) 2006 Hepatitis C Screening 2009 Hepatitis A Vaccines (1 of 2 - Risk 2-dose series) 2010 Hepatitis B Vaccines (1 of 3 - 19+ 3-dose series) 2010 Pap Smear 2012 Pneumococcal Vaccine: Pediatrics (0 to 5 Years) and At-Risk Patients (6 to 49) Years) (2 of 2 - PCV) 10/29/2015 10/29/2014 Cervical Cancer Screening 2021 HPV/Cotest 2021 COVID-19 Vaccine (3 - 2023-2 5 season) 2024 05/12/2022, 04/28/2021 Influenza Vaccine (#1) 2024 , 10/29/2014 Alcohol/Substance Use Screening 02/23/2026 02/23/2025 Depression Screening 02/23/2026 02/23/2025, 02/23/2025 SDOH Screening 02/23/2026 02/23/2025 Tobacco Screening 02/23/2026 02/23/2025 DTaP/Tdap/Td Vaccines (3 - T d or Tdap) 05/25/2032 05/25/2022, 10/30/2014 Zoster Vaccines (1 of 2) 2041 RSV Patients and Patients Aged 60 years or older (1 - 1-dose 75+ series) 2066 HIB Vaccines Aged Out No longer eligi ble based on patient's age to complete this topic HPV Vaccines Aged Out No longer eligi ble based on patient's age to complete this topic IPV Vaccines Aged Out No longer eligi ble based on patient's age to complete this topic Meningococcal Vaccine Aged Out No rosita jina eligible based on patient's age to complete this topic RSV under 20 months Aged Out No longe r eligible based on patient's age to complete this topic Rotavirus Vaccines Aged Out No longer eligible based on patient's age to complete this topic Insurance [facility] C3 Care Teams Black Top Raker Relationship Specialty Start Date End Date Malini Sterling FNP [address] [place] [id number] PCP - General Family Medicine 07/12/22
--- OUTSIDE RECORDS SUMMARY | 2025-02-23 10:52 | XMS_ITS | Encounter Summary ---
Author Organization [employer] Address [address] [facility] 7t [place] [address] Care Team Providers Care Senior Medical Transcriptionist Name Role Phone Malini Sterling [facility] Primary Care Provider [phone] Encounter Details Date Type Department Care Team (Latest Contact Info) Description 02/23/2025 Travel Social History Tobacco Use Types Packs/Day Years Used Date Smoking Tobacco: Never Smokeless Tobacco: Never Alcohol Use Standard Drinks/Week Comments Never 0 [...] AM EDT documented as of this encounter Plan of Treatment Not on file documented as of this encounter Visit Diagnoses Not on filedocumented in this encounter Care Teams Senior Medical Transcriptionist Relationship Specialty Start Date End Date Malini Sterling FNP [address] [place] [id number] PCP - General Family Medicine 07/12/22 documented as of this encounter
--- OUTSIDE RECORDS SUMMARY | 2025-02-23 10:52 | XMS_ITS | Continuity of Care Document ---
Author Organization [employer] Address [address] [address] Phone Care Team Providers Care Glass Bender Name Role Phone Carson Blake MD, Tae Unavailable Unav ailable Allergies, Adverse Reactions, Alerts Substance Reaction Status Criticality No Known Allergies Active No Inform ation Medications Medication Instructions Dosage Effective Dates (start - stop) Status Comments Necon (28) 1 mg-35 mcg tablet take 1 tablet by oral route every day - Active Flagyl 500 mg tablet take 1 tablet by or al route every 12 hours 500 MG - Active Diflucan 150 mg tablet take 1 tablet by oral route once - Active Vitamin tablet take 1 tablet by oral route every day - Active Problems Condition Type Effective Dates (start - stop) Clini shashi Status Comments No Known Problems Procedures Procedure Date Office Visit Nutrition 15 Min Psycho 15 Min Health Ed URINALYSIS, AUTO, W/O SCOPE Antepartum Office Visit URINALYSIS, AUTO, W/O SCOPE Antepartum Office Visit Nutrition Reassesment 15 Min Psycho Ind Fup Reassess 15 Min 15 Health Individual 15 Min URINALYSIS, AUTO, W/O SCOPE Antepartum Office Visit Nutrition Reassesment 15 Min Health Individual 15 Min URINALYSIS, AUTO, W/O SCOPE Antepartum Office Visit URINALYSIS, AUTO, W/O SCOPE Antepartum Office Visit Nutrition Reassesment 15 Min Psycho Ind Fup Reassess 15 Min 15 Health Individual 15 Min URINALYSIS, AUTO, W/O SCOPE Antepartum Office Visit Nutrition Follow Up Care Plan 15 Min Oct Individual Psycho Fup Care Plan 15 Min D Care Plan Health OB US >/= 14 WKS, SNGL FETUS URINALYSIS, AUTO, W/O SCOPE Antepartum Office Visit URINALYSIS, AUTO, W/O SCOPE Antepartum Office Visit Nutrition Follow Up Care Plan 15 Min Aug Individual Psycho Fup Care Plan 15 Min O Care Plan Health OB US NUCHAL [place], 1 GEST URINE TEST URINALYSIS, AUTO, W/O SCOPE Initial OB Visit Advance Directives Directive Yes / No Effective Date File Name No Information Encounters Encounter Description Practice Location Reason(s) For Visit Diagnoses Date Provider Providers Copied on Encounter [email or web address], [address] [place] [address], [id number], tel:[phone] [facility] [address] [place] [address] check (chief complaint) Routine health visit and follow-up examination after childbirth 5 Carson Strong. [address] [place], [id number]. tel:[phone] [facility], [address] [place] [address], [id number], tel:[phone] [facility] No Information 5 Carson Strong. [address] [place], [place], [id number]. tel:[phone] [facility], [address] [place] [address], [id number], [place] tel:[phone] [facility] [address] [facility] routine (chief complaint) Supervision of other normal 3 5 Chawla Tyrah. [address] [place] [address], [id number], [place]. tel:[phone] [facility], [address] [place] [address], [id number], [place] tel:[phone] [facility] [address] [facility] routine (chief complaint) Supervision of other normal 5 Chawla Tyrah. [address] [place] [address], [id number], [place]. tel:[phone] [facility], [address] [place] [address], [id number], [place] tel:[phone] [facility] [address] [facility] routine (chief complaint) Supervision of other normal 5 Chawla Tyrah. [address] [place] [address], [id number], [place]. tel:[phone] [facility], [address] [place] [address], [id number], [place] tel:[phone] [facility] [address] [facility] routine (chief complaint) Supervision of other normal 5 Chawla Tyrah. [address] [place] [address], [id number], [place]. tel:[phone] [facility], [address] [place] [address], [id number], [place] tel:[phone] [facility] [address] [facility] routine (chief complaint)ro utine (chief complaint) Supervision of other normal 5 Chawla Tyrah. [address] [place] [address], [id number], [place]. tel:[phone] [facility], [address] [place] [address], [id number], [place] tel:[phone] [facility] [address] [facility] routine (chief complaint) Supervision of other normal 0 8201 4 Cammy Petty. [address] [place] [address], [id number], [place]. tel:[phone] [facility], [address] [place] [address], [id number], [place] tel:[phone] [facility] [place] Other known or suspected abnormality, not elsewhere classified, affecting management of mother, antepartum condition or complication 4 No Information [facility], [address] [place] [address], [id number], [place] tel:[phone] [facility] [address] [facility] follow up from ER visit (chief complaint) Supervision of other normal 3 4 Roxi Sosa. [address] [place] [address], [id number]. tel:[phone] [facility] [employer], [address] [place] [address], [id number], [place] tel:[phone] [facility] [address] [facility] headache (chief complaint) Supervision of other normal 0 2201 4 Carson Strong. [address] [place], [place], [id number]. tel:[phone] [facility], [address] [place] [address], [id number], [place] tel:[phone] [facility] [place] [facility] SCREENING NEC 0 9 4 No Information [facility] [employer], [address] [place] [address], [id number], [place] tel:[phone] [facility] [address] [facility] Supervision of other normal 4 Wendy Dumont. [address], [place], [id number], [place]. tel:[phone] Family History Family Member Type Diagnosis Age At Onset Father Problem (finding) asthma Payers Payer name Insurance type Covered libertarian ID Jeannette snyder(s) Med[employer] [id number] Social History Type Description Quantity Date Captured Comments Alcohol Use Details No Caffeine Use Details coffee and soda Tobacco Use Status No Information Smoking Status Never smoker Sex Female Vital Signs Date / Time: Height Weight BMI Pulse Rate Blood Pressure Temperature Respiratory Rate Body Surface Area Head Circumference Head Circ. Percentile Wt./Orestes. Percentile BMI percentile Pulse Ox Inhaled Ox 3:59 PM 64.75 in 55.792 kg (123.00 lbs) 20.6 3 kg/m eter (2) 72 /min 95/55 mm[Hg] 96.80 F 16 /min Chief Complaint And Reason For Visit From encounter dated '04/01/2015 15:00'. check (chief complaint) Reason For Referral Reason For Referral No Information Plan Of Treatment Date Type Action Status Patient Education Care: After Your Visit completed Patient Education Vaginal Bleeding After the First Trime completed Patient Education Vaginal Bleeding After the First Trime completed Patient Education Visits: After Your Visit completed Patient Education Weeks 10 to 14 of Your : Afte completed History Of Present Illness Encounter Date Complaint History Of Prese nt Illness check routine routine routine routine routine routine routine follow up from ER visit 24year o ld female here for follow up from ER at [facility] on 08/23/14 for vaginal fluid. Patient had pelvic ultrasound done and was told normal and discharged with keflex for 7 days and instructed to follow up. Patient report no more leakage of vaginal fluid. headache Onset: 3 days ag o. Functional Status Date Functional Assessmen t No Information Instructions Date Instruction Additional Infor mation No Information Assessments Type Assessment Date assessment Routine health visit and follow-up examination after childbirth Mental Status Date Cognitive Assessment Orientation - Lingle ed to time, place, person, situation. Patient Care Teams Name Effective Dates (start - stop) Status Members No Information
--- OUTSIDE RECORDS SUMMARY | 2025-02-23 10:52 | XMS_ITS | Encounter Summary ---
Author Organization [employer] Address [address] [facility] [address] [place] [address] Care Team Providers Care Pca Name Role Phone [facility] [place] Primary Care Provider [phone] Reason for Visit * Reason Onset Date Comments chart prep 02/22/2025 Encounter Details Date Type Department Care Team ([facility] st Contact Info) Description 02/22/2025 Telephone [facility] MEDICINE [address] [place] [address] [facility] [address] [place] [address] chart prep Social History Tobacco Use Types Packs/Day Years Used Date Smoking Tobacco: Never Smokeless Tobacco: Never Alcohol Use Standard Drinks/Week Comments Never 0 (1 standard drink = 0.6 oz pur e alcohol) Housing Stability Answer Date Recorded What is your housing situation today? I have chaenlle irving 02/23/[address] you [...] Access Q2 Not on file 02/23/2025 Comments Unknown Sex and Gender Information Value Date Recorded Sex Assigned at Female 09/14/2022 10:39 AM EDT Legal Sex Female 10:39 AM EDT Gender Identity Female 09/14/2022 10:39 AM EDT Sexual Orientation Straight 09/14/2022 10 :39 AM EDT documented as of this encounter Miscellaneous Notes * Telephone Encounter - Za Martin MA - 02/22/2025 10:35 AM EDT Chart Prep Labs: not applicable Images: not applicable Referrals: not applicable Vaccines due: Yes Overdue care gaps: SBIRT, SDOH, PHQ-9, MOHAN-7, and Disability screen documented in this encounter Plan of Treatment Not on file documented as of this encounter Visit Diagnoses Not on filedocumented in this encounter Care Teams Pca Relationship Specialty Start Date End Date Malini Sterling FNP [address] [place] [address] PCP - General Family Medicine 07/12/22 documented as of this encounter
[2025-02-23 12:02] LABS: Appearance Urine Clear; Color Urine Yellow; Glucose Urine UA Negative (Negative); Leukocyte Esterase Urine Negative (Negative); Nitrite Urine Negative (Negative); PH >= 9.0 (5.0-9.0); Urine Blood Negative (Negative); Urine Ketones Negative (Negative); Urine Protein Negative (Neg-Trace)
[2025-02-23 12:13] LABS: Alanine Aminotransferase 28 U/L (0-31); Albumin Level 4.6 g/dL (3.5-5.0); Alkaline Phosphatase 61 U/L (39-117); Anion Gap 9 (12-20); Aspartate Amino Transferase 27 U/L (5-31); Bilirubin Direct 0.2 mg/dL (0.0-0.5); Bilirubin Total 0.5 mg/dL (0.0-1.0); Blood Urea Nitrogen 8 mg/dL (9-16); Calcium 9.3 mg/dL (8.4-10.2); Carbon Dioxide 27 mmol/L (22-29); Chloride 108 mmol/L (96-108); Estimated Glomerular Filt Rate > 60; Glucose Random 89 mg/dL (60-115); Potassium 3.9 mmol/L (3.3-5.1); Sodium 140 mmol/L (135-145); Total Protein 7.6 g/dL (6.5-8.0)
[2025-02-23 12:20] LABS: HBS Num1 0.64 mIU/mL (0-7.99); HBsAGNum1 0.31 S/CO (0.00-0.99); HIV AB/AG Nonreactive (Nonreactive); HIV Num 1 0.07 S/CO (0.00-0.99); Hepatitis B Surface Antigen Negative (Negative); ~HepC Num1 0.18 S/CO (0.00-0.79); ~Hepatitis B Surface Antibody NONREACTIVE (Nonreactive); ~Hepatitis C Antibody Nonreactive (Nonreactive)
[2025-02-23 12:22] LABS: Syphilis Screen Nonreactive (Nonreactive)
[2025-02-23 12:24] LABS: Creatinine Urine 106.47 mg/dL; Microalbum/Creatinine Ratio Ur 5.6 ug/mg cr (<30)
[2025-02-23 12:45] LABS: Bacteria Urine None Seen (None Seen); Hyaline Casts Urine 0-2 /LPF (0-2); RBC Urine 0-2 /HPF (0-2); WBC Urine 0-5 /HPF (0-5)
[2025-02-23 14:42] LABS: CT PCR NOT DETECTED (Not Detect.); NG PCR NOT DETECTED (Not Detect.)
== END 2025-02-23 10:09 | disposition home or self-care (01) ==
LOC: HO.HHCL 10:08
PROVIDERS: Visit Provider Registered Nurse
DX: Z11.3 Encounter for screening for infections with a predominantly sexual mode of transmission (principal); R10.9 Unspecified abdominal pain
CPT/HCPCS: 80048; 80076; 81001; 82043; 82570; 86706; 86780; 86803; 87340; 87389; 87491; 87591

== ENCOUNTER 2025-03-29 09:25 | Outpatient (REF) | payer MEDICAID, SELFPAY ==
--- OUTSIDE RECORDS SUMMARY | 2025-03-29 10:02 | XMS_ITS | Encounter Summary ---
Author Organization [employer] Address [address] [facility] 7t [place] [address] Care Team Providers Care Nut And Bolt Assembler Name Role Phone [facility] Primary Care Provider [phone] Reason for Visit * Reason Onset Date Comments Letter for School/Work 03/29/2025 Encounter Details Date Type Department Care Team ([facility] st Contact Info) Description 03/29/2025 Telephone [facility] MEDICINE [address] [place] [address] [facility] [address] [place] [address] Letter for School/Work Social History Tobacco Use Types Packs/Day Years [...] encounter Miscellaneous Notes * Telephone Encounter - Lyudmila Sam - 03/29/2025 9:35 AM EDT LETTER NEEDED documented in this encounter Plan of Treatment Not on file documented as of this encounter Visit Diagnoses Not on filedocumented in this encounter Care Teams Nut And Bolt Assembler Relationship Specialty Start Date End Date Malini Sterling FNP [address] [place] [address] PCP - General Family Medicine 07/12/22 documented as of this encounter
--- OUTSIDE RECORDS SUMMARY | 2025-03-29 10:02 | XMS_ITS | Encounter Summary ---
Author Organization [employer] Address [address] [facility] [address] [place] [address] Care Team Providers Care Chair Caner Name Role Phone [facility] Primary Care Provider [phone] Reason for Visit * Reason Onset Date Comments Appointment Request 03/28/2025 Encounter Details Date Type Department Care Team ([facility] st Contact Info) Description 03/28/2025 Telephone [facility] MEDICINE [address] [place], [place] [phone] [facility] [address] [place] [address] Appointment Request Social History Tobacco Use Types Packs/Day Years [...] t he electric, gas, oil or water [employer] threatened to shut off services in your [...] encounter Miscellaneous Notes * Telephone Encounter - Lulu Abdullahi RN - 03/28/2025 4:02 PM EDT TC placed to patient [phone] to discuss below message. Patient reports no previous TB screenings in the past and denies receiving BCG vaccine. RN has placed Tspot order and advised patient to come to the lab M-F before 3:30pm to have BW order completed. Patient verbalized understanding. Patientto f/u PRN. * Telephone Encounter - Marcia Merritt - 03/28/2025 11:46 AM EDT Tc from pt requesting TB test for work Contact pt at [phone] documented in this encounter Plan of Treatment Scheduled Orders Name Type Priority Associated Diagnoses Orde r Schedule T-SPOT??.TB Lab Routine Encounter for screening for respiratory tuberculosis Expected: 03/28/2025 (Approximate), Expires: 03/28/2026 documented as of this encounter Visit Diagnoses Diagnosis Encounter for screening for respiratory tuberculosis documented in this encounter Care Teams Chair Caner Relationship Specialty Start Date End Date Malini Sterling FNP [address] [place] [address] PCP - General Family Medicine 07/12/22 documented as of this encounter
--- OUTSIDE RECORDS SUMMARY | 2025-03-29 10:03 | XMS_ITS | Clinical Summary ---
Author Organization [employer] Address [address] [place] [address] 7 [place] [address] Care Team Providers Care Telephone Sterilizer Name Role Phone Malini Sterling [facility] Primary Care Provider [phone] Allergies No known active allergies Medications propranolol (Inderal) 10 MG tabletIndications :Mitral valve prolapse,Migraine without aura and without status migrainosus, not intractable TAKE 1 TABLET BY MOUTH THREE TIMES DAILY 270 tablet 3 3 Active fluticasone (Flonase) 50 MCG/ACT nasal sprayIndications: Otitis media with effusion, left Administer 1-2 sprays into each nostril in the morning. Shake gently. Before first use, prime pump. After use, clean tip and replace cap. 48 g 3 Active albuterol (Ventolin HFA) 108 (90 Base) MCG/ACT inhalerIndication s:Mild intermittent asthma without complication INHALE 2 PUFFS BY MOUTH EVERY 4 HOURS 18 g 3 5 Active Active Problems Problem Noted Date Diagnosed Date Mitral valve prolapse 01/28/2023 Hemangioma of liver 01/28/2023 Mild intermittent asthma 12/09/2021 Encounters Date Type Department Care Team Description 03/29/[address] [facility] MEDICINE [address] [place] [address] Malini Sterling FNP Letter for School/Work 03/28/[address] [facility] MEDICINE [address] [place] [address] Malini Sterling FNP Appointment Request 02/26/[address] [facility] MEDICINE [address] [place] [address] Malini Sterling FNP Results 02/23/2025 9:30 AM EDT Office Visit [facility] MEDICINE [address] [place], [place] [phone] Malini Sterling FNP Healthcare maintenance (Primary Dx); Mitral valve prolapse; Liver hemangioma; Mild intermittent asthma without complication; Proteinuria, unspecified type; Encounter for screening examination for sexually transmitted disease 02/23/2025 Travel 02/22/[address] [facility] MEDICINE [address] [place], [place] [phone] Malini Sterling FNP chart prep 02/16/2025 Patient Outreach [facility] PEDS [address] [place], [place] [phone] Malini Sterling FNP Pre-visit Planning (SDOH unable to reach, number disconnected) 02/07/2025 Population Health Risk Score [facility] () Department [address] [place] [id number] Provider, Population Health Generic from Last [...] Q2 Not on file 02/23/2025 Comments No Intention Date Recorded No desire to become (finding) 0 02/23/2025 Sex and Gender Information Value Date Recorded [...] Health Maintenance Due Date Last Done Comments Hepatitis A Vaccines (1 of 2 - [...] 02/23/2026 02/23/2025, 02/23/2025 SDOH Screening 02/23/2026 02/23/2025 Family Planning (PISQ) 02/25/2026 02/25/2025 Tobacco Screening 02/25/2026 02/25/2025 DTaP/Tdap/Td Vaccines (3 - T d or Tdap) 05/25/2032 05/25/2022, 10/30/2014 Zoster Vaccines (1 of 2) 2041 RSV Patients and Patients Aged 60 years or older (1 - 1-dose 75+ series) 2066 HIV Screening Completed 02/23/2025 Hepatitis C Screening Completed 02/23/2025 HIB Vaccines Aged Out No longer eligi ble based on patient's age to complete this topic HPV Vaccines Aged Out No longer eligi ble based on patient's age to complete this topic IPV Vaccines Aged Out No longer eligi ble based on patient's age to complete this topic Meningococcal B Vaccine Aged Out No l onger eligible based on patient's age to complete this topic Meningococcal Vaccine Aged Out No rosita jina eligible based on patient's age to complete this topic RSV under 20 months Aged Out No longe r eligible based on patient's age to complete this topic Rotavirus Vaccines Aged Out No longer eligible based on patient's age to complete this topic Procedures Procedure Name Priority Date/Time Associated Diagnosis Comments US ABDOMEN LIMITED Routine 03/27/2025 Liver hemangioma HEPATITIS B SURFACE ANTIBODY, QUALITATIVE Routine 02/23/2025 10:13 AM EDT Encounter for screening examination for sexually transmitted disease HEPATITIS B SURFACE ANTIGEN, EIA Routine 02/23/2025 10:13 AM EDT Encounter for screening examination for sexually transmitted disease HEPATITIS C AB W/REFL TO HCV RNA, QN, PCR Routine 02/23/2025 10:13 AM EDT Encounter for screening examination for sexually transmitted disease HIV 1/2 ANTIGEN/ANTIBODY, FOURTH GENERATION W/RFL Routine 02/23/2025 10:13 AM EDT Encounter for screening examination for sexually transmitted disease HEPATIC FUNCTION PANEL Routine 02/23/2025 10:12 AM EDT Proteinuria, unspecified type BASIC METABOLIC PANEL Routine 02/23/2025 10:12 AM EDT Proteinuria, unspecified type ALBUMIN, RANDOM URINE W/CREATININE Routine 02/23/2025 10:12 AM EDT Proteinuria, unspecified type URINALYSIS, COMPLETE, WITH REFLEX TO CULTURE Routine 02/23/2025 10:12 AM EDT Proteinuria, unspecified type SYPHILIS SCREEN Routine 02/23/2025 10:12 AM EDT Encounter for screening examination for sexually transmitted disease CHLAMYDIA/N. GONORRHOEAE RNA, TMA, UROGENITAL Routine 02/23/2025 10:12 AM EDT Encounter for screening examination for sexually transmitted disease from Last 3 Months Results * US Abdomen Limited (03/27/2025) Anatomical Region Laterality Modality Abdomen Ultrasound [facility] IMG US PROCEDURES Final Resul t * Hepatitis C Antibody with Reflex to HCV, RNA, Quantitative, Real-Time PCR (02/23/2025 10:13 AM EDT) Hepatitis C Antibody Nonreactive Nonreactive [facility] Comment:Antibodies to HCV no t detected; does not exclude early acuteHCV infection. Blood Venous blood specimen / Unknown 02/23/2025 10:13 AM EDT 02/23/2025 11:31 AM EDT [facility] LAB BLOOD ORDERABLES Final Re sult [facility] [address] [place] [address] [phone] * Hepatitis B surface antigen, EIA (02/23/2025 10:13 AM EDT) Hepatitis B Surface Ag Negative Negative [facility] Blood Venous blood specimen / Unknown 02/23/2025 10:13 AM EDT 02/23/2025 11:31 AM EDT [facility] LAB BLOOD ORDERABLES Final Re sult Performing Organization Address City/[facility] Co de Phone Number [facility] [address] [place] [phone] [phone] * HIV-1/2 Antigen and Antibodies, Fourth Generation, with Reflexes (02/23/2025 10:13 AM EDT) Pathologist [facility] HIV AB/AG Nonreactive Nonreactive [facility] Comment:HIV-1 p24 Ag and/or HIV-1/HIV-2 Ab not detected.A test result that is nonreactive does not exclude thepossibility of exposure to or infection with HIV-1 and/orHIV-2. Nonreactive results in this assay for individualswith prior exposure to HIV-1 and/or HIV-2 may be due toantigen and antibody levels that are below the limit ofdetection of this assay.The [employer] HIV Ag/Ab Combo assay result andsupplemental assay results should be interpreted inconjunction with the patient's clinical presentation,history and other laboratory results. If the results areinconsistent with clinical evidence, additional testing issuggested to confirm the result. Blood Venous blood specimen / Unknown 02/23/2025 10:13 AM EDT 02/23/2025 11:31 AM EDT [facility] LAB BLOOD ORDERABLES Final Re sult Performing Organization Address City/[facility]/ZIP Co de Phone Number [facility] [address] [place] [phone] * Hepatitis B Surface Antibody, Qualitative (02/23/2025 10:13 AM EDT) Pathologist [facility] ~Hepatitis B Surface Antibody NONREACTIVE Nonreactive [facility] Comment:Nonreactive: < 8.00 mIU/mL Blood Venous blood specimen / Unknown 02/23/2025 10:13 AM EDT 02/23/2025 11:31 AM EDT [facility] LAB BLOOD ORDERABLES Final Re sult Performing Organization Address [facility] Co de Phone Number [facility] [address] [place] [phone] [phone] * Syphilis Screen (02/23/2025 10:12 AM EDT) Syphilis Screen Nonreactive Nonreactive [facility] Blood 02/23/2025 10:1 2 AM EDT 02/23/2025 11:31 AM EDT [facility] BLOOD ORDERABLES Final Re sult Performing Organization Address [facility] de Phone Number [facility] [address] [place] [phone] * Urinalysis, Complete, with Reflex to Culture (02/23/2025 10:12 AM EDT) Color Urine Yellow [facility] Appearance Urine Clear [facility] PH >=9.0 5.0 - 9.0 [facility] Glucose Urine UA Negative Negative mg/dL [facility] Urine Blood Negative Negative [facility] Specific [place] - Urine 1.020 1.005 - 1.025 [facility] Urine Protein Negative Neg-Trace mg/dL [facility] Urine Ketones Negative Negative mg/dL [facility] Nitrite Urine Negative Negative [facility] Leukocyte Esterase Urine Negative Negative [facility] RBC Urine 0-2 0 - 2 /HPF [facility] Urine WBC 0-5 0 - 5 /HPF [facility] Urine Squamous Epithelial Cell 3-5 0 - 2 /HPF [facility] Urine Bacteria None Seen None Seen [facility] Hyaline Casts, Urine 0-2 0 - 2 /LPF [facility] Urine 02/23/2025 10:1 2 AM EDT 02/23/2025 11:42 AM EDT Narrative [facility] - 02/23/2025 12:46 PM EDT [id number], Clean Catch [facility] URINE ORDERABLES Final Re sult Performing Organization Address [facility] Co de Phone Number [facility] [address] [place] [phone] * Albumin, Random Urine W/Creatinine (02/23/2025 10:12 AM EDT) Creatinine, Urine 106.47 mg/dL [facility] Microalbumin Urine 6.0 mg/L [facility] Microalbum Creatinine Ratio Ur 5.6 <30 ug/mg cr [facility] Comment:Albumin/Creatinine R atio Reference Ranges: Normal: < 30 ug/mg creatinine Microalbuminuria: 30 - 300 ug/mg creatinineClinical Albuminuria: > 300 ug/mg creatinine Urine 02/23/2025 10:1 2 AM EDT 02/23/2025 11:42 AM EDT [facility] URINE ORDERABLES Final Re sult Performing Organization Address [facility] de Phone Number [facility] [address] [place] [phone] * Chlamydia/N. Gonorrhoeae RNA, TMA, Urogenitial (02/23/2025 10:12 AM EDT) CT PCR NOT DETECTED Not Detect. [facility] Comment:A not detected test result does not exclude the possibilityof infection because test results can be affected byimproper specimen collection, concurrent antibiotic therapy,or the number of organisms in the specimen which may bebelow the sensitivity of the test. As with many diagnostictests, results from the Xpert CT/NG assay should beinterpreted in conjunction with other laboratory andclinical data available to the clinician.Xpert CT/NG performance has not been evaluated in patientsless than 14 years of age. The assay should not be used forthe evaluationof suspected sexual abuse or for other medico-legalindications. Additional testing is recommended in anycircumstance when false positive or false negative resultscould lead to adverse medical, social or psychologicalconsequences. NG PCR NOT DETECTED Not Detect. [facility] Comment:A not detected test result does not exclude the possibilityof infection because test results can be affected byimproper specimen collection, concurrent antibiotic therapy,or the number of organisms in the specimen which may bebelow the sensitivity of the test. As with many diagnostictests, results from the Xpert CT/NG assay should beinterpreted in conjunction with other laboratory andclinical data available to the clinician.Xpert CT/NG performance has not been evaluated in patientsless than 14 years of age. The assay should not be used forthe evaluationof suspected sexual abuse or for other medico-legalindications. Additional testing is recommended in anycircumstance when false positive or false negative resultscould lead to adverse medical, social or psychologicalconsequences. Urine (Urine, Random) 02/23/2025 10:12 AM EDT 02/23/2025 11:42 AM EDT Narrative [facility] - 02/23/2025 2:43 PM EDT Urine [facility] MICROBIOLOGY - GENERAL OR DERABLES Final Result [facility] [address] [place] [phone] * Hepatic Function Panel (02/23/2025 10:12 AM EDT) Bilirubin, Total 0.5 0.0 - 1.0 mg/dL [facility] Bilirubin, Direct 0.2 0.0 - 0.5 mg/dL [facility] Aspartate Amino Transferase 27 5 - 31 U/L [facility] Alanine Aminotransferase 28 0 - 31 U/L [facility] Total Protein 7.6 6.5 - 8.0 g/dL [facility] Albumin Level 4.6 3.5 - 5.0 g/dL [facility] Alkaline Phosphatase 61 39 - 117 U/L [facility] Blood Venous blood specimen / Unknown 02/23/2025 10:12 AM EDT 02/23/2025 11:31 AM EDT [facility] BLOOD ORDERABLES Final Re sult Performing Organization Address [facility]/ZIP Co de Phone Number [facility] [address] [place] [address] [phone] * (ABNORMAL) Basic Metabolic Panel (02/23/2025 10:12 AM EDT) Sodium 140 135 - 145 mmol/L [facility] Potassium 3.9 3.3 - 5.1 mmol/L [facility] Chloride 108 96 - 108 mmol/L [facility] Carbon Dioxide 27 22 - 29 mmol/L [facility] Anion Gap 9(L) 12 - 20 [facility] Urea Nitrogen (BUN) 8(L) 9 - 16 mg/dL [facility] Creatinine, Serum 0.64 0.5 - 1.4 mg/dL [facility] Estimated Glomerular Filt Rate >60 [facility] Comment:Chronic Kidney Disea se: Estimated GFR < 60 mL/min/1.56p5Ldoaxw Kidney Disease: Estimated GFR < 15 mL/min/1.73m2 Glucose 89 60 - 115 mg/dL [facility] Calcium 9.3 8.4 - 10.2 mg/dL [facility] Blood Venous blood specimen / Unknown 02/23/2025 10:12 AM EDT 02/23/2025 11:31 AM EDT [facility] BLOOD ORDERABLES Final Re sult Performing Organization Address City/[facility]/ZIP Co de Phone Number [facility] [address] [place] [phone] from Last 3 Months Insurance [facility] C3 Care Teams Telephone Sterilizer Relationship Specialty Start Date End Date Malini Sterling FNP [address] [place] [phone] PCP - General Family Medicine 07/12/22
--- OUTSIDE RECORDS SUMMARY | 2025-03-29 10:03 | XMS_ITS | Continuity of Care Document ---
Author Organization [employer] Address [address] [phone] Phone Care Team Providers Care Human Resources Generalist Name Role Phone Carson Blake MD, Tae [...] Providers Copied on Encounter [facility], [address] [place] [address], [id number], tel:[phone] [facility] [address] [place] [address] check (chief complaint) Routine health visit and follow-up examination after childbirth 5 Carson Strong. [address] [place], [id number]. tel:[phone] [facility], [address] [place] [address], [id number], tel:[phone] [facility] No Information 5 Carson Strong. [address] [place], [place], [id number]. tel:[phone] [facility], [address] [place] [address], [id number], [place] tel:[phone] [facility] [address] [facility] routine (chief complaint) Supervision of other normal 3 5 Chawla Tyrah. [address] [place] [address], [id number], [place]. tel:[phone] [facility], [address] [place] [address], [id number], [place] tel:[phone] [facility] [address] [facility] routine (chief complaint) Supervision of other normal 5 Chawla Tyrah. [address] [place] [address], [id number], [place]. tel:[phone] [facility], [address] [place] [address], [id number], [place] tel:[phone] [facility] [address] [facility] routine (chief complaint) Supervision of other normal 5 Chawla Tyrah. [address] [place] [address], [id number], [place]. tel:[phone] [facility], [address] [place] [address], [id number], [place] tel:[phone] [facility] [address] [facility] routine (chief complaint) Supervision of other normal 5 Chawla Tyrah. [address] [place] [address], [id number], [place]. tel:[phone] [facility], [address] [place] [address], [id number], [place] tel:[phone] [facility] [address] [facility] routine (chief complaint)ro utine (chief complaint) Supervision of other normal 5 Chawla Tyrah. [address] [place] [address], [id number], [place]. tel:[phone] [facility], [address] [place] [address], [id number], [place] tel:[phone] [facility] [address] routine (chief complaint) Supervision of other normal 0 8201 4 Cammy Petty. [address] [place] [address], [id number], [place]. tel:[phone] [facility], [address] [place] [address], [id number], [place] tel:[phone] [facility] Other known or suspected abnormality, not elsewhere classified, affecting management of mother, antepartum condition or complication 4 No Information [facility], [address] [place] [address], [id number], [place] tel:[phone] [facility] [address] follow up from ER visit (chief complaint) Supervision of other normal 3 4 Roxi Sosa. [address] [place] [address], [id number]. tel:[phone] [facility] [employer], [address] [place] [address], [id number], [place] tel:[phone] [facility] headache (chief complaint) Supervision of other normal 0 2201 4 Carson Strong. [address] [place], [place], [id number]. tel:[phone] [facility], [address] [place] [address], [id number], [place] tel:[phone] [facility] SCREENING NEC 0 9 4 No Information [facility] [employer], [address] [place] [address], [id number], [place] tel:[phone] [facility] [address] Supervision of other normal 4 Wendy Dumont. [address] [address] [place], [id number], [place]. tel:[phone] Family History Family Member Type Diagnosis Age At Onset Father Problem (finding) asthma Payers Payer name Insurance type Covered libertarian ID Jeannette snyder(s) MediCal [id number] Social History Type Description Quantity Date Captured [...] here for follow up from ER at [facility] on 08/23/14 for vaginal fluid. Patient had [...] Mental Status Date Cognitive Assessment Orientation - [place] ed to time, place, person, situation. Patient Care Teams Name Effective Dates (start - stop) Status Members No Information
[2025-04-02 04:39] LABS: TS Negative Control Passed; TS Panel A 0; TS Panel B 0; TS Positive Control Passed; TSpotTB Negative (Negative)
== END 2025-03-29 09:26 | disposition home or self-care (01) ==
LOC: HO.HHCL 09:25
PROVIDERS: Visit Provider Registered Nurse
DX: Z11.1 Encounter for screening for respiratory tuberculosis (principal)
CPT/HCPCS: 36415; 86481

== ENCOUNTER 2025-03-30 08:38 | Outpatient (AMB) | payer MEDICAID, SELFPAY ==
[2025-03-30 08:41] VITALS: BP 90/72; PULSE 83; BMI 20.2
--- NOTE | 2025-03-30 08:41 | A.OFFVIS_ITS ---
Vital Signs 03/30/25 08:41 Height 5 ft 1 in Weight 107 lb 2.314 oz BMI 20.2 BP 90/72 Blood Pressure Location Rt brachial Position Sitting Pulse 83 Pulse Source Monitor Intake Visit Reasons: f/u req by brayan/ottoniel last seen 04/02/22 KM [employer] Required: Yes [employer] Language: Oil Well Engineer Name: voice munoz [id number] Allergies No Known Allergies Allergy (Verified 03/30/25 08:44) Medication List - Last Reconciled 03/30/25 by DONALDO Mayorga albuterol sulfate mg inhalation Q6H PRN albuterol sulfate 90 mcg/actuation (ProAir HFA) 2 puffs PO Q4-6H PRN HPI HPI f/u req by denisa last seen 04/02/22 KM: Details: Katya is a 34-year-old female presenting with mitral valve prolapse and tachycardia. She experiences episodes of tachycardia during rest and activity. The tachycardia interrupts her activities. The patient has a history of mitral valve prolapse. No new symptoms have emerged. She had previous heart monitoring years ago. No recent pregnancies or new cardiac symptoms are reported. Her last prior visit to our office was 04/02/22. [facility] Medical History Mitral valve prolapse Asthma Surgical History History of section Family History Mother Asthma Father Diabetes Maternal Grandfather Mitral valve prolapse Maternal Grandmother Breast cancer Social History Alcohol intake: current Alcohol intake frequency: does not drink Patient Tobacco Use Status: Never used Tobacco service: No Current occupational status: employed Review of Systems Const All systems reviewed & are unremarkable except as noted in HPI and below ENT Denies dizziness Card Denies chest pain, Denies chest pain at rest, Denies chest pain with activity, Reports rapid heart rate, Denies pedal edema, Denies edema, Denies leg edema, Denies lightheadedness, Denies palpitations, Denies dyspnea, Denies dyspnea on exertion and Denies orthopnea Resp Denies cough, Denies dyspnea and Denies dyspnea on exertion GI Denies hematochezia and Denies change in stool character Musc Denies abnormal gait, Denies limited range of motion, Denies muscle cramps, Denies muscle weakness, Denies numbness, Denies radiating pain into limb, Denies stiffness and Denies tingling Neuro Denies abnormal gait, Denies dizziness, Denies numbness and Denies tingling Endo Denies palpitations Physical Exam Vital Signs: Last Vital Signs Pulse 83 03/30/25 08:41 BP 90/72 03/30/25 08:41 BMI result Body Mass Index 20.2 Const General: cooperative, healthy appearing, comfortable and no acute distress Orientation/consciousness: patient oriented x3 Neck Neck: Yes normal visual inspection Resp Effort & Inspection: normal respiratory effort Auscultation: clear to auscultation bilaterally, no rales, no rhonchi and no wheezes Cardio Rate: regular rate Rhythm: regular rhythm Heart sounds: S1 normal heart sound present, S2 normal heart sound present, no gallops, no murmurs and no rubs Neuro General: patient oriented x3 Extrem General: Yes normal to inspection, No no pedal edema and No calf tenderness Psych Appearance: grossly normal Mental Status: mental status grossly normal Speech and movement: Normal speech and movement present Office Procedures EKG Details: Today, read by me, normal sinus rhythm, rate 83, QTC 425 milliseconds, artifact V2 [id number], Complete Assessment & Plan Assessment & Plan (1) Mitral valve prolapse: Code(s): I34.1 - Nonrheumatic mitral (valve) prolapse Category: Medical Plan: Reported hx of mitral valve prolapse with prior evaluation done in [place]. No murmur noted on exam. No symptoms reported. Will obtain echocardiogram. (2) Palpitation: Code(s): R00.2 - Palpitations Category: Medical Plan: Report of heart palpitations, rapid heart beats that cause her concern and hold her back from some exertional activities. EKG today shows SR, normal FL, QRS, Qtc. Will check holter. Plan An echocardiogram is ordered to assess mitral valve prolapse. A heart monitor will be used to evaluate tachycardia. Follow-up is set at one year, pending test results. Diagnostic orders are entered, and scheduling will contact the patient. I discussed with the patient the existing mitral valve prolapse condition and the episodic tachycardia. The necessity of an echocardiogram and heart monitor was explained to evaluate the current state and any progression. The patient understands and agrees to these diagnostics. I informed the patient that the centralized scheduling system will contact her for appointments. There will be a follow-up one year from now unless test results indicate a need for sooner intervention. Advantages and risks of monitoring her heart rhythm were mentioned, emphasizing an active approach to prevent complications. Patient was informed and verbally consented to the use of an ambient scribe for clinic note documentation during this visit. Time spent on chart review, documentation, interview, assessment Orders: Orders ECG 3 day holter monitor Today R00.2 - Palpitations CA echo transthoracic complete Today I34.1 - Nonrheumatic mitral (valve) prolapse Patient Instructions: - Wait for a call from centralized scheduling for echocardiogram and heart monitoring appointments. - Return immediately if experiencing new, severe symptoms. - Follow up in one year, or sooner if contacted with abnormal test results. Coding Level of Care Code Est Pt Level 3 (42412) Complex EM visit Add On G2211 Diagnoses Mitral valve prolapse I34.1 Palpitation R00.2 CPT Codes EKG - CPT: 02948-[id number], Complete ([id number]) Time Spent (min) 24
--- OUTSIDE RECORDS SUMMARY | 2025-03-30 08:49 | XMS_ITS | Encounter Summary ---
Author Organization [employer] Address [address] [facility] 7t [place] [address] Care Team Providers Care Design/Animation Instructor Name Role Phone [facility] Primary Care Provider [phone] Reason for Visit * Reason Onset Date Comments Letter for School/Work 03/29/2025 Encounter Details Date Type Department Care Team ([facility] st Contact Info) Description 03/29/2025 Telephone [facility] [address] [place] [address] [facility] [address] [place] [address] Letter for School/Work Social History Tobacco Use [...] on filedocumented in this encounter Care Teams Design/Animation Instructor Relationship Specialty Start Date End Date Malini Sterling FNP [address] [place] [phone] PCP - General Family Medicine 07/12/22 documented as of this encounter
--- OUTSIDE RECORDS SUMMARY | 2025-03-30 08:49 | XMS_ITS | Clinical Summary ---
Author Organization [employer] Address [address] [place] [address] 7 [place] [address] Care Team Providers Care Customer Relations Advisor Name Role Phone Malini Sterling [facility] Primary Care Provider [phone] Allergies No known active allergies Medications propranolol [...] Type Department Care Team Description 03/29/2025 Telephone [facility] [address] [place] [address] Malini Sterling FNP Letter for School/Work 03/28/2025 Telephone [facility] [address] [place] [address] Malini Sterling FNP Appointment Request 02/26/2025 Telephone [facility] [address] [place] [address] Malini Sterling FNP Results 02/23/2025 9:30 AM EDT Office Visit [facility] [address] [place], [place] [phone] Malini Sterling FNP Healthcare maintenance (Primary Dx); Mitral valve prolapse; Liver hemangioma; Mild intermittent asthma without complication; Proteinuria, unspecified type; Encounter for screening examination for sexually transmitted disease 02/23/2025 Travel 02/22/2025 Telephone [facility] [address] [place], [place] [phone] Malini Streling FNP chart prep 02/16/2025 Patient Outreach [facility] [address] [place], [place] [phone] Malini Sterling FNP Pre-visit Planning (SDOH unable to reach, number disconnected) 02/07/2025 Population Health Risk Score [facility] () Department [address] [place] [phone] Provider, Population Health Generic from Last [...] (03/27/2025) Anatomical Region Laterality Modality Abdomen Ultrasound [facility] IMG US PROCEDURES Final Resul t * Hepatitis C Antibody with Reflex to HCV, RNA, Quantitative, Real-Time PCR (02/23/2025 10:13 AM EDT) Hepatitis C Antibody Nonreactive Nonreactive [facility] Comment:Antibodies to HCV no t detected; does not exclude early acuteHCV infection. Blood Venous blood specimen / Unknown 02/23/2025 10:13 AM EDT 02/23/2025 11:31 AM EDT [facility] LAB BLOOD ORDERABLES Final Re sult [facility] [address] [place] [address] [phone] * Hepatitis B surface antigen, EIA (02/23/2025 10:13 AM EDT) Hepatitis B Surface Ag Negative Negative [facility] Blood Venous blood specimen / Unknown 02/23/2025 10:13 AM EDT 02/23/2025 11:31 AM EDT [facility] LAB BLOOD ORDERABLES Final Re sult Performing Organization Address City/[facility] Co de Phone Number [facility] [address] [place] [address] [phone] * HIV-1/2 Antigen and Antibodies, Fourth Generation, with Reflexes (02/23/2025 10:13 AM EDT) Pathologist [facility] HIV AB/AG Nonreactive Nonreactive [facility] Comment:HIV-1 p24 Ag and/or HIV-1/HIV-2 Ab not detected.A test result that is nonreactive does not exclude thepossibility of exposure to or infection with HIV-1 and/orHIV-2. Nonreactive results in this assay for individualswith prior exposure to HIV-1 and/or HIV-2 may be due toantigen and antibody levels that are below the limit ofdetection of this assay.The [employer] HIV Ag/Ab Combo assay result andsupplemental assay results should be interpreted inconjunction with the patient's clinical presentation,history and other laboratory results. If the results areinconsistent with clinical evidence, additional testing issuggested to confirm the result. Blood Venous blood specimen / Unknown 02/23/2025 10:13 AM EDT 02/23/2025 11:31 AM EDT [facility] LAB BLOOD ORDERABLES Final Re sult Performing Organization Address City/[facility]/ZIP Co de Phone Number [facility] [address] [place] [address] [phone] * Hepatitis B Surface Antibody, Qualitative (02/23/2025 10:13 AM EDT) Pathologist [facility] ~Hepatitis B Surface Antibody NONREACTIVE Nonreactive [facility] Comment:Nonreactive: < 8.00 mIU/mL Blood Venous blood specimen / Unknown 02/23/2025 10:13 AM EDT 02/23/2025 11:31 AM EDT [facility] LAB BLOOD ORDERABLES Final Re sult Performing Organization Address [facility] Co de Phone Number [facility] [address] [place] [address] [phone] * Syphilis Screen (02/23/2025 10:12 AM EDT) Syphilis Screen Nonreactive Nonreactive [facility] Blood 02/23/2025 10:1 2 AM EDT 02/23/2025 11:31 AM EDT [facility] LAB BLOOD ORDERABLES Final Re sult Performing Organization Address [facility] de Phone Number [facility] [address] [place] [phone] * Urinalysis, Complete, with Reflex to Culture (02/23/2025 10:12 AM EDT) Color Urine Yellow [facility] Appearance Urine Clear [facility] PH >=9.0 5.0 - 9.0 [facility] Glucose Urine UA Negative Negative mg/dL [facility] Urine Blood Negative Negative [facility] Specific [place] - Urine 1.020 1.005 - 1.025 [facility] Urine Protein Negative Neg-Trace mg/dL [facility] Urine Ketones Negative Negative mg/dL [facility] Nitrite Urine Negative Negative [facility] Leukocyte Esterase Urine Negative Negative [facility] RBC Urine 0-2 0 - 2 /HPF [facility] Urine WBC 0-5 0 - 5 /HPF [facility] Urine Squamous Epithelial Cell 3-5 0 - 2 /HPF [facility] Urine Bacteria None Seen None Seen [facility] Hyaline Casts, Urine 0-2 0 - 2 /LPF [facility] Urine 02/23/2025 10:1 2 AM EDT 02/23/2025 11:42 AM EDT Narrative [facility] - 02/23/2025 12:46 PM EDT [id number], Clean Catch [facility] LAB URINE ORDERABLES Final Re sult Performing Organization Address [facility] Co de Phone Number [facility] [address] [place] [phone] * Albumin, Random Urine W/Creatinine (02/23/2025 10:12 AM EDT) Creatinine, Urine 106.47 mg/dL [facility] Microalbumin Urine 6.0 mg/L [facility] Microalbum Creatinine Ratio Ur 5.6 <30 ug/mg cr [facility] Comment:Albumin/Creatinine R atio Reference Ranges: Normal: < 30 ug/mg creatinine Microalbuminuria: 30 - 300 ug/mg creatinineClinical Albuminuria: > 300 ug/mg creatinine Urine 02/23/2025 10:1 2 AM EDT 02/23/2025 11:42 AM EDT [facility] LAB URINE ORDERABLES Final Re sult Performing Organization Address [facility] de Phone Number [facility] [address] [place] [phone] * Chlamydia/N. Gonorrhoeae RNA, TMA, Urogenitial (02/23/2025 10:12 AM EDT) CT PCR NOT DETECTED Not Detect. [facility] Comment:A not detected test result [...] psychologicalconsequences. NG PCR NOT DETECTED Not Detect. [facility] Comment:A not detected test result [...] AM EDT 02/23/2025 11:42 AM EDT Narrative [facility] - 02/23/2025 2:43 PM EDT Urine [facility] MICROBIOLOGY - GENERAL OR DERABLES Final Result [facility] [address] [place] [phone] * Hepatic Function Panel (02/23/2025 10:12 AM EDT) Bilirubin, Total 0.5 0.0 - 1.0 mg/dL [facility] Bilirubin, Direct 0.2 0.0 - 0.5 mg/dL [facility] Aspartate Amino Transferase 27 5 - 31 U/L [facility] Alanine Aminotransferase 28 0 - 31 U/L [facility] Total Protein 7.6 6.5 - 8.0 g/dL [facility] Albumin Level 4.6 3.5 - 5.0 g/dL [facility] Alkaline Phosphatase 61 39 - 117 U/L [facility] Blood Venous blood specimen / Unknown 02/23/2025 10:12 AM EDT 02/23/2025 11:31 AM EDT [facility] BLOOD ORDERABLES Final Re sult Performing Organization Address [facility]/ZIP Co de Phone Number [facility] [address] [place] [phone] * (ABNORMAL) Basic Metabolic Panel (02/23/2025 10:12 AM EDT) Sodium 140 135 - 145 mmol/L [facility] Potassium 3.9 3.3 - 5.1 mmol/L [facility] Chloride 108 96 - 108 mmol/L [facility] Carbon Dioxide 27 22 - 29 mmol/L [facility] Anion Gap 9(L) 12 - 20 [facility] Urea Nitrogen (BUN) 8(L) 9 - 16 mg/dL [facility] Creatinine, Serum 0.64 0.5 - 1.4 mg/dL [facility] Estimated Glomerular Filt Rate >60 [facility] Comment:Chronic Kidney Disea se: Estimated GFR < 60 mL/min/1.57w5Bugtjx Kidney Disease: Estimated GFR < 15 mL/min/1.73m2 Glucose 89 60 - 115 mg/dL [facility] Calcium 9.3 8.4 - 10.2 mg/dL [facility] Blood Venous blood specimen / Unknown 02/23/2025 10:12 AM EDT 02/23/2025 11:31 AM EDT [facility] BLOOD ORDERABLES Final Re sult Performing Organization Address City/[facility]/ZIP Co de Phone Number [facility] [address] [place] [address] [phone] from Last 3 Months Insurance [facility] C3 Care Teams Customer Relations Advisor Relationship Specialty Start Date End Date Malini Sterling FNP [address] [place] [phone] PCP - General Family Medicine 07/12/22
--- OUTSIDE RECORDS SUMMARY | 2025-03-30 08:49 | XMS_ITS | Encounter Summary ---
Author Organization [employer] Address [address] [facility] [address] [place] [address] Care Team Providers Care Manager Print Name Role Phone [facility] [facility] Primary Care Provider [phone] Reason for Visit * Reason Onset Date Comments Appointment Request 03/28/2025 Encounter Details Date Type Department Care Team ([facility] st Contact Info) Description 03/28/2025 Telephone [facility] [address] [place], [place] [phone] [facility] [address] [place] [address] Appointment Request Social History Tobacco Use Types [...] t he electric, gas, oil or water [employer] threatened to shut off services in your [...] 4:02 PM EDT TC placed to patient [phone] to discuss below message. Patient reports no [...] TB test for work Contact pt at [phone] documented in this encounter Plan of Treatment Scheduled Orders Name Type Priority Associated Diagnoses Orde r Schedule T-SPOT??.TB Lab Routine Encounter for screening for respiratory tuberculosis Expected: 03/28/2025 (Approximate), Expires: 03/28/2026 documented as of this encounter Visit Diagnoses Diagnosis Encounter for screening for respiratory tuberculosis documented in this encounter Care Teams Manager Print Relationship Specialty Start Date End Date Malini Sterling FNP [address] [place] [phone] PCP - General Family Medicine 07/12/22 documented as of this encounter
--- OUTSIDE RECORDS SUMMARY | 2025-03-30 08:50 | XMS_ITS | Continuity of Care Document ---
Author Organization [employer] Address [address] [phone] Phone Care Team Providers Care Internet Ecommerce Specialist Name Role Phone Carson Blake MD, Tae [...] Providers Copied on Encounter [facility], [address] [place] [address], [id number], tel:[phone] [facility] [address] [place] [address] check (chief complaint) Routine health visit and follow-up examination after childbirth 5 Carson Strong. [address] [place], [id number]. tel:[phone] [facility], [address] [place] [address], [id number], tel:[phone] [facility] No Information 5 Carson Strong. [address] [place], [place], [id number]. tel:[phone] [facility], [address] [place] [address], [id number], [place] tel:[phone] [facility] [address] [facility] routine (chief complaint) Supervision of other normal 3 5 Chawla Tyrah. [address] [place] [address], [id number], [place]. tel:[phone] [facility], [address] [place] [address], [id number], [place] tel:[phone] [facility] [address] [facility] routine (chief complaint) Supervision of other normal 5 Chawla Tyrah. [address] [place] [address], [id number], [place]. tel:[phone] [facility], [address] [place] [address], [id number], [place] tel:[phone] [facility] [address] [facility] routine (chief complaint) Supervision of other normal 5 Chawla Tyrah. [address] [place] [address], [id number], [place]. tel:[phone] [facility], [address] [place] [address], [id number], [place] tel:[phone] [facility] [address] [facility] routine (chief complaint) Supervision of other normal 5 Chawla Tyrah. [address] [place] [address], [id number], [place]. tel:[phone] [facility], [address] [place] [address], [id number], [place] tel:[phone] [facility] [address] [facility] routine (chief complaint)ro utine (chief complaint) Supervision of other normal 5 Chawla Tyrah. [address] [place] [address], [id number], [place]. tel:[phone] [facility], [address] [place] [address], [id number], [place] tel:[phone] [facility] [address] routine (chief complaint) Supervision of other normal 0 8201 4 Cammy Petty. [address] [place] [address], [id number], [place]. tel:[phone] [facility], [address] [place] [address], [id number], [place] tel:[phone] [facility] Other known or suspected abnormality, not elsewhere classified, affecting management of mother, antepartum condition or complication 4 No Information [facility], [address] [place] [address], [id number], [place] tel:[phone] [facility] [address] follow up from ER visit (chief complaint) Supervision of other normal 3 4 Roxi Sosa. [address] [place] [address], [id number]. tel:[phone] [facility] [employer], [address] [place] [address], [id number], [place] tel:[phone] [facility] headache (chief complaint) Supervision of other normal 0 2201 4 Carson Strong. [address] [place], [place], [id number]. tel:[phone] [facility], [address] [place] [address], [id number], [place] tel:[phone] [facility] SCREENING NEC 0 9 4 No Information [facility] [employer], [address] [place] [address], [id number], [place] tel:[phone] [facility] Supervision of other normal 4 Wendy Dumont. [address] [address] [place], [place], [id number], [place]. tel:[phone] Family History Family Member Type Diagnosis Age At Onset Father Problem (finding) asthma Payers Payer name Insurance type Covered democrat ID Jeannette snyder(s) [employer] [id number] Social History Type Description Quantity Date Captured [...] here for follow up from ER at [facility] on 08/23/14 for vaginal fluid. [...] Mental Status Date Cognitive Assessment Orientation - [place] ed to time, place, person, situation. Patient Care Teams Name Effective Dates (start - stop) Status Members No Information
== END 2025-03-30 09:16 | disposition home or self-care (01) ==
PROVIDERS: PCP Nurse Practitioner Family; Visit Provider Nurse Practitioner Family
DX: I34.1 Nonrheumatic mitral (valve) prolapse (principal); R00.2 Palpitations
CPT/HCPCS: 93010; 99213

== ENCOUNTER → 2025-03-30 08:38 | Outpatient (BNVA) | payer MEDICAID, SELFPAY | PROVIDERS: PCP Nurse Practitioner Family; Visit Provider Nurse Practitioner Family | DX: I34.1 Nonrheumatic mitral (valve) prolapse (principal); R00.2 Palpitations | CPT/HCPCS: 93005; 99212 ==

== ENCOUNTER → 2025-04-24 13:43 | Outpatient (REF) | payer MEDICAID, SELFPAY ==
--- NOTE | 2025-04-24 13:47 | CA_ITS ---
Transthoracic Echocardiogram Patient (Last, First, Middle): Katya Varela, Gender: Female Date of : 1990 Age: 34 Procedure Date: 04/24/2025 Procedure Type: Transthoracic Echocardiogram Location: OP Height: 154. cm Weight: 50.8 kg BSA: 1.47 m2 Heart Rate: 77 bpm BP: 125 / 85 mmHg Hr Business Partner Consultant: VICKIE Medley MD: Blanca Manjarrez BRIDGE SAW OPERATORPauly Crown Blocker: Marco Pena MD Symptoms: I34.1 - Nonrheumatic mitral (valve) prolapse Study Quality: Adequate ECG Rhythm: Sinus Conclusions: - Essentially normal study without evidence of mitral valve prolapse Findings Left Ventricle Normal left ventricular size, thickness, and systolic function. The visually estimated ejection fraction is between 60-65%. Spectral Doppler is indicative of a normal filling pattern. Right Ventricle Normal right ventricular cavity size and systolic function. Atria Both atria are normal in size. There is no evidence of interatrial shunt. Aortic Valve Normal aortic valve structure and function. There is no aortic valve stenosis. There is no aortic valve regurgitation. Mitral Valve Normal mitral valve structure and function. There is no mitral valve regurgitation. There is no mitral valve stenosis. Pulmonic Valve The pulmonic valve is likely normal. Tricuspid Valve Normal tricuspid valve structure. There is trace tricuspid valve regurgitation. The right ventricular systolic pressure is normal. The right ventricular systolic pressure is 16 mmHg. Normal right atrial pressure. There is no evidence of pulmonary hypertension. Great Vessels All visible segments of the aorta are normal in size. The pulmonary artery was not well visualized. Venous The inferior vena cava is normal in size and collapses greater than 50% with inspiration. Pericardium/Pleural There is no evidence of pericardial effusion. Prior Study Comparison No prior study available for comparison. Measurements 2D Linear Measurements IVSd: 0.72 0.6-0.9/0.6-1.0 cm LVIDd: 4.39 3.9-5.3/4.2-5.9 cm LVIDd Index: 2.99 2.4-3.2/2.2-3.1 cm/m2 LVIDs: 2.72 2.0-3.6 cm LVPWd: 0.75 0.7-1.1 cm LA Diam: 3.10 2.7-3.8/3.0-4.0 cm LAIDs Index: 2.11 1.5-2.3 cm/m2 LV Mass: 120.86 67-162/88-224 g LV Mass Index: 82.22 43-95/49-115 g/m2 LVOT Diam: 1.80 3.0+(-)1.3 cm 2D Systolic Function EF 4C: 64.30 >55% EF 2C: 63.40 >55% EF BiP: 62.80 >55% Mitral Valve MV Pk E: 0.99 MV PK A: 0.60 MV Decel Time: 191.00 E/A: 1.70 E'Lateral: 12.30 E'Medial: 10.20 E/E' Med: 9.70 E/E' Lat: 8.00 PHT: 56.00 MVA PHT: 3.93 Decel Caldwell: 5.16 Aortic Valve AoV Pk Leonel: 1.51 AoV Mn Leonel: 1.06 AoV VTI: 0.32 AoV Pk Grad: 9.00 Aov Mn Grad: 5.00 ALLI Cont.VTI: 1.80 LVOT LVOT Pk Leonel: 1.23 LVOT Mn Leonel: 0.76 LVOT VTI: 0.23 LVOT Pk Grad: 6.00 LVOT Mn Grad: 3.00 LVOT Diam: 1.80 LVOT Area: 2.54 Diastolic Function MV Pk E: 0.99 MV Pk A: 0.60 E/A: 1.70 E'Medial: 10.20 E/E' Med: 9.70 E' Laterial: 12.30 E/E' Lat: 8.00 Right Ventricle TAPSE (mm): 22.30 TVS' Leonel: 12.30 Tricuspid Valve TR Pk Leonel: 1.83 TR Pk Grad: 13.00 RA Press: 3.00 RVSP: 16.00 Great Vessels Aorta Sinus of Valsalva: 2.90 2.0-3.5 cm Ao Asc: 3.00 2.1-3.4 cm Ao Arch: 2.40 Pulmonary Valve PV Pk Leonel: 0.92 Peak PV Grad: 3.00 Updated in Other Vendor System with Status of Final Marco Pena MD electronically signed on 04/25/2025 4:23:03 PM with status of Final
== END ==
LOC: HO.CARD 13:43
PROVIDERS: Visit Provider Nurse Practitioner Family
DX: I34.1 Nonrheumatic mitral (valve) prolapse (principal); R00.2 Palpitations
CPT/HCPCS: 93242; 93306

== ENCOUNTER → 2025-04-24 13:47 | Outpatient (BNV) | payer MEDICAID, SELFPAY | PROVIDERS: Visit Provider Internal Medicine Cardiovascular Disease | DX: I34.1 Nonrheumatic mitral (valve) prolapse (principal) | CPT/HCPCS: 93306 ==

== ENCOUNTER 2025-06-05 14:04 | Outpatient (REF) | payer MEDICAID, SELFPAY ==
--- OUTSIDE RECORDS SUMMARY | 2025-06-05 15:24 | XMS_ITS | Encounter Summary ---
Author Organization [employer] Address [address] [address] Care Team Providers Care Hand I Tube Bender Name Role Phone [facility] Primary Care Provider [phone] Reason for Visit * Reason Onset Date Comments Care Coordination 05/31/2025 Encounter Details Date Type Department Care Team ([facility] st Contact Info) Description 05/31/2025 Telephone [facility] [address], [place] [id number] [place] [facility] [address] [place] [address] Care Coordination Social History Tobacco Use Types Packs/Day Years [...] Telephone Encounter - Lulu Abdullahi RN - 05/31/2025 9:26 AM EDT TC placed to [facility] [phone] to discuss below. RN spoke Sharon from [facility] who will have a provider review the MRI and return call to [facility] with recommendations. Sharon returned call and stated the provider said she can be referred to [facility] however they wouldbe following her labs which the provider was able to see in the system and was not concerned. The provider stated if PCP is really concerned about the findings then they would recommend referral to interventional radiology for biopsy. [facility] reports the patient can be referred to their office however their plan would be to monitor labs or interventional radiology if patient/PCP were really concerned. Sharon reports she can be reached at [phone] for any further questions. ----- Message from [facility] sent at 05/30/2025 5:58 PM EDT ----- Hi! 04/2025 Follow-up liver MRI to evaluate incidental finding on abdominal ultrasound shows liver lesion slightly increased in size compared to ultrasound report. Likely representing hemangioma, FNH or adenoma however a metastatic lesion cannot be totally excluded. Recommendation for 3-4-month follow-up MRI. Patient is aware of results and I will order follow-up imaging, however I would like GI to review the MRI report to see if they think she is appropriate for a referral to them for ongoing monitoring and/or if there is any other evaluation recommendations they have. Would you mind calling over to [facility] to requesting that the on-call provider review the MRI and let us know if we should refer versus monitor for now or if there is additional testing they recommend? Thank you! Malini documented in this encounter Plan of Treatment Not on file documented as of this encounter Visit Diagnoses Not on filedocumented in this encounter Care Teams Hand I Tube Bender Relationship Specialty Start Date End Date Malini Sterling FNP [address] [place] [id number] PCP - General Family Medicine 07/12/22 documented as of this encounter
[2025-06-05 16:10] LABS: MANUAL DIFF FLAG NO
[2025-06-05 16:24] LABS: Hematocrit 39.4 % (37.0-47.0); Hemoglobin 13.0 g/dl (12.0-16.0); Imm Gran Abs Auto 0.01 X10*3/uL (0.00-0.03); Imm Gran Pct Auto 0.2 % (0.0-0.4); Lymphocytes Absolute Auto 1.5 X10*3/uL (1.2-4.9); Mean Corpuscular HGB Conc 33.0 g/dl (31.0-35.0); Mean Corpuscular Hemoglobin 27.8 pg (27.0-33.0); Mean Corpuscular Volume 84.2 fL (80.0-98.0); NRBC Abs Auto 0.000 X10*3/uL (0.0-0.012); NRBC Pct Auto 0.0 /100WBC (0.0-0.2); Platelet Count 234 X10*3/uL (160-400); Red Blood Count 4.68 X10*6/uL (4.20-5.50); White Blood Count 5.6 X10*3/uL (4.8-10.8)
[2025-06-05 16:36] LABS: Alanine Aminotransferase 22 U/L (0-31); Albumin Level 4.9 g/dL (3.5-5.0); Alkaline Phosphatase 58 U/L (39-117); Anion Gap 9 (12-20); Aspartate Amino Transferase 26 U/L (5-31); Blood Urea Nitrogen 8 mg/dL (9-16); Calcium 9.1 mg/dL (8.4-10.2); Carbon Dioxide 27 mmol/L (22-29); Chloride 107 mmol/L (96-108); Estimated Glomerular Filt Rate > 60; Potassium 3.4 mmol/L (3.3-5.1); Sodium 140 mmol/L (135-145); Total Protein 7.5 g/dL (6.5-8.0)
== END 2025-06-05 14:05 | disposition home or self-care (01) ==
LOC: HO.HHCL 14:04
PROVIDERS: PCP Registered Nurse; Visit Provider Registered Nurse
DX: K76.9 Liver disease, unspecified (principal)
CPT/HCPCS: 36415; 80053; 82105; 85025